=== PATIENT | female | born 1940 | race Caucasian/White ===

== ENCOUNTER 2018-09-04 22:14 | Emergency (ER) | payer MEDICARE, OTHER, BC ==
[2018-09-04 23:08] LABS: BASO % 0.5 % (0.0-1.0); EOS # 0.3 10^3/uL (0.0-0.50); EOS % 3.9 % (0.0-3.0); HEMOGLOBIN 12.6 g/dl (12.0-15.5); IMMATURE GRANULOCYTE % 0.4 % (0-3.0); LYMPH % 13.6 % (24.0-44.0); MEAN CORPUSCULAR HGB CONC 32.3 g/dl (32.0-36.5); MEAN CORPUSCULAR VOLUME 83.7 fl (80.0-96.0); MONO # 0.9 10^3/uL (0.0-0.8); MONO % 11.5 % (0.0-5.0); NEUTROPHILS # 5.4 10^3/uL (1.8-7.7); NEUTROPHILS % 70.1 % (36.0-66.0); PLATELET COUNT, AUTOMATED 280 10^3/uL (150-450); RED BLOOD COUNT 4.66 10^6/uL (4.00-5.40); RED CELL DISTRIBUTION WIDTH 14.7 % (11.5-14.5); WHITE BLOOD COUNT 7.7 10^3/uL (4.0-10.0)
[2018-09-04 23:18] LABS: PARTIAL THROMBOPLASTIN TIME 27.4 SECONDS (25.4-37.6)
[2018-09-04 23:25] LABS: INR 1.03; PROTHROMBIN TIME 13.6 SECONDS (12.1-14.4)
[2018-09-04 23:39] LABS: ANION GAP 7 MEQ/L (8-16); BLOOD UREA NITROGEN 11 MG/DL (7-18); CALCIUM LEVEL 8.7 MG/DL (8.8-10.2); CARBON DIOXIDE LEVEL 26 MEQ/L (21-32); CHLORIDE LEVEL 102 MEQ/L (98-107); CREATININE FOR GFR 0.64 MG/DL (0.55-1.30); GLOMERULAR FILTRATION RATE > 60.0 (>32); GLUCOSE, FASTING 166 MG/DL (70-100); POTASSIUM SERUM 4.4 MEQ/L (3.5-5.1); SODIUM LEVEL 135 MEQ/L (136-145)
== END 2018-09-05 05:01 | disposition home or self-care (01) ==
LOC: M ED 09-05 05:01
DX: R93.5 Abnormal findings on diagnostic imaging of other abdominal regions, including retroperitoneum (principal); N93.9 Abnormal uterine and vaginal bleeding, unspecified; E11.9 Type 2 diabetes mellitus without complications; I10 Essential (primary) hypertension; E07.9 Disorder of thyroid, unspecified; K21.9 Gastro-esophageal reflux disease without esophagitis; F33.9 Major depressive disorder, recurrent, unspecified; F41.9 Anxiety disorder, unspecified; Z79.899 Other long term (current) drug therapy; Z79.890 Hormone replacement therapy; Z79.84 Long term (current) use of oral hypoglycemic drugs
CPT/HCPCS: 76856

== ENCOUNTER 2018-10-07 16:12 | Emergency (ER) | payer MEDICARE, OTHER ==
[~2018-10-07] VITALS: Ht 154.9 cm; Wt 61.4 kg
[~2018-10-07 16:12] MED LIST: CALCTAB7 PO; GLUC1000; LEVO88TA4; LEVOTHYROXINE PO; LISI-542 PO; LISIPOW; METF10004 PO; OMEP20CA3 PO; OMEP20TA7; PAXI20TA; PAXI20TA29 PO; PROT20TA11 PO; SYNT88TA2 PO; TYLE325T5 PO; VITA100067 PO; ZEST1TAB5 PO
[2018-10-07 17:15] LABS: BASO % 0.3 % (0.0-1.0); EOS # 0.3 10^3/uL (0.0-0.50); EOS % 2.9 % (0.0-3.0); HEMATOCRIT 37.3 % (36.0-47.0); LYMPH # 1.2 10^3/uL (1.5-4.5); LYMPH % 10.7 % (24.0-44.0); MEAN CORPUSCULAR HEMOGLOBIN 27.1 pg (27.0-33.0); MEAN CORPUSCULAR HGB CONC 32.2 g/dl (32.0-36.5); MEAN CORPUSCULAR VOLUME 84.4 fl (80.0-96.0); MONO # 1.5 10^3/uL (0.0-0.8); MONO % 14.2 % (0.0-5.0); NEUTROPHILS # 7.7 10^3/uL (1.8-7.7); NEUTROPHILS % 71.3 % (36.0-66.0); PLATELET COUNT, AUTOMATED 318 10^3/uL (150-450); RED BLOOD COUNT 4.42 10^6/uL (4.00-5.40); WHITE BLOOD COUNT 10.8 10^3/uL (4.0-10.0)
[2018-10-07 17:18] LABS: INR 0.98; PROTHROMBIN TIME 13.1 SECONDS (12.1-14.4)
[2018-10-07 17:23] LABS: BLOOD UREA NITROGEN 17 MG/DL (7-18); CALCIUM LEVEL 8.7 MG/DL (8.8-10.2); CARBON DIOXIDE LEVEL 25 MEQ/L (21-32); CHLORIDE LEVEL 101 MEQ/L (98-107); CREATININE FOR GFR 0.72 MG/DL (0.55-1.30); GLOMERULAR FILTRATION RATE > 60.0 (>32); GLUCOSE, FASTING 179 MG/DL (70-100); POTASSIUM SERUM 3.8 MEQ/L (3.5-5.1); SODIUM LEVEL 135 MEQ/L (136-145)
[2018-10-07 18:03] VITALS: BP 150/67
== END 2018-10-07 18:17 | disposition home or self-care (01) ==
LOC: M ED 16:12
DX: N93.9 Abnormal uterine and vaginal bleeding, unspecified (principal); N85.8 Other specified noninflammatory disorders of uterus; I10 Essential (primary) hypertension; E87.1 Hypo-osmolality and hyponatremia; E83.51 Hypocalcemia; R10.30 Lower abdominal pain, unspecified; E11.9 Type 2 diabetes mellitus without complications; E03.9 Hypothyroidism, unspecified; K21.9 Gastro-esophageal reflux disease without esophagitis; F41.9 Anxiety disorder, unspecified; G43.909 Migraine, unspecified, not intractable, without status migrainosus; Z79.899 Other long term (current) drug therapy; Z79.84 Long term (current) use of oral hypoglycemic drugs

== ENCOUNTER 2019-01-29 14:46 | Emergency (ER) | payer MEDICARE, OTHER ==
[~2019-01-29] VITALS: Ht 162.6 cm; Wt 78.9 kg
[2019-01-29 16:01] LABS: BASO % 0.3 % (0.0-1.0); EOS # 0.3 10^3/uL (0.0-0.50); EOS % 3.4 % (0.0-3.0); HEMATOCRIT 34.7 % (36.0-47.0); HEMOGLOBIN 11.1 g/dl (12.0-15.5); LYMPH % 10.1 % (24.0-44.0); MEAN CORPUSCULAR HEMOGLOBIN 24.7 pg (27.0-33.0); MEAN CORPUSCULAR VOLUME 77.3 fl (80.0-96.0); MONO # 1.1 10^3/uL (0.0-0.8); MONO % 11.9 % (0.0-5.0); NEUTROPHILS # 6.9 10^3/uL (1.8-7.7); PLATELET COUNT, AUTOMATED 290 10^3/uL (150-450); RED BLOOD COUNT 4.49 10^6/uL (4.00-5.40); WHITE BLOOD COUNT 9.4 10^3/uL (4.0-10.0)
[2019-01-29 17:08] LABS: BLOOD UREA NITROGEN 14 MG/DL (7-18); CALCIUM LEVEL 8.6 MG/DL (8.8-10.2); CARBON DIOXIDE LEVEL 26 MEQ/L (21-32); CHLORIDE LEVEL 98 MEQ/L (98-107); CREATININE FOR GFR 0.73 MG/DL (0.55-1.30); GLOMERULAR FILTRATION RATE > 60.0 (>32); GLUCOSE, FASTING 160 MG/DL (70-100); POTASSIUM SERUM 4.3 MEQ/L (3.5-5.1); SODIUM LEVEL 132 MEQ/L (136-145)
[2019-01-29 18:31] VITALS: BP 135/62
--- NOTE | 2019-01-29 18:31 | REP ---
PELVIC ULTRASOUND: Real-time sonographic evaluation of the pelvis was performed utilizing transabdominal and endovaginal technique. The bladder measures 4.7 x 4.7 x 8.6 cm. The uterus is enlarged measuring 14.5 x 7.5 x 8.0 cm. Within the region of the endometrium there is possible mass approximately 6.2 x 5.3 x 5.0 cm with increased blood flow. There is also increased blood flow and possible invasion of the cervix. Ovaries could not be visualized. I see no definite adnexal mass or free fluid. IMPRESSION: Suspect ill-defined endometrial mass, somewhat hypervascular, with possible extension into the cervix. Approximate measurements of the mass are 6.2 x 5.3 x 5.0 cm, suspicious for endometrial carcinoma. Electronically Signed by Eliecer Abrams MD 01/31/2019 10:10 A
== END 2019-01-29 19:10 | disposition home or self-care (01) ==
LOC: M ED 14:46
DX: R19.09 Other intra-abdominal and pelvic swelling, mass and lump (principal); N95.0 Postmenopausal bleeding; I10 Essential (primary) hypertension; E03.9 Hypothyroidism, unspecified; K80.20 Calculus of gallbladder without cholecystitis without obstruction; Z78.0 Asymptomatic menopausal state; Z79.899 Other long term (current) drug therapy; Z90.49 Acquired absence of other specified parts of digestive tract

== ENCOUNTER 2019-04-04 23:07 | Emergency (ER) | payer MEDICARE, OTHER ==
[~2019-04-04] VITALS: Ht 154.9 cm; Wt 59.1 kg
[~2019-04-04 23:07] MED LIST changes: -OMEP20CA3 PO; +OMEP20CA4 PO
[2019-04-05 01:18] LABS: BASO % 0.3 % (0.0-1.0); EOS # 0.4 10^3/uL (0.0-0.50); EOS % 2.6 % (0.0-3.0); LYMPH # 1.9 10^3/uL (1.5-4.5); LYMPH % 12.3 % (24.0-44.0); MEAN CORPUSCULAR HEMOGLOBIN 24.6 pg (27.0-33.0); MEAN CORPUSCULAR HGB CONC 31.9 g/dl (32.0-36.5); MEAN CORPUSCULAR VOLUME 77.2 fl (80.0-96.0); MONO # 1.8 10^3/uL (0.0-0.8); MONO % 11.5 % (0.0-5.0); NEUTROPHILS # 11.4 10^3/uL (1.8-7.7); NEUTROPHILS % 72.3 % (36.0-66.0); PLATELET COUNT, AUTOMATED 521 10^3/uL (150-450); RED BLOOD COUNT 2.72 10^6/uL (4.00-5.40); WHITE BLOOD COUNT 15.8 10^3/uL (4.0-10.0)
[2019-04-05 01:21] LABS: HEMOGLOBIN 6.7 g/dl (12.0-15.5)
[2019-04-05 01:27] LABS: INR 1.12; PROTHROMBIN TIME 14.1 SECONDS (11.8-14.0)
[2019-04-05 01:28] LABS: PARTIAL THROMBOPLASTIN TIME 31.2 SECONDS (25.0-38.4)
[2019-04-05 01:49] LABS: BLOOD UREA NITROGEN 11 MG/DL (7-18); CALCIUM LEVEL 7.6 MG/DL (8.8-10.2); CARBON DIOXIDE LEVEL 29 MEQ/L (21-32); CHLORIDE LEVEL 93 MEQ/L (98-107); CREATININE FOR GFR 0.63 MG/DL (0.55-1.30); GLOMERULAR FILTRATION RATE > 60.0 (>32); GLUCOSE, FASTING 153 MG/DL (70-100); POTASSIUM SERUM 2.8 MEQ/L (3.5-5.1); SODIUM LEVEL 134 MEQ/L (136-145)
--- NOTE | 2019-04-05 02:30 | REPVR ---
EXAM: US Pelvis Complete, Transabdominal EXAM DATE/TIME: 04/05/2019 1:46 AM CLINICAL HISTORY: 78 years old, female; Menstruation abnormalities; Postmenopausal bleeding; Additional info: Vaginal bleeding TECHNIQUE: Imaging protocol: Real-time transabdominal pelvic ultrasound with image documentation. Complete exam. COMPARISON: US PELVIC NON-OB COMPLETE 01/29/2019 4:47 PM FINDINGS: Uterus/cervix: Heterogeneous enlarged uterus measuring 12.7 x 7.0 x 8.6 cm. Heterogeneous solid lesion measuring 6.1 x 5.6 x 6.8 cm. Endometrial stripe is not well seen right ovary treated by mass. Heterogeneous thickened cervix with increased vascularity. Right adnexa: Right ovary is not seen. Left adnexa: Left ovary is unremarkable. 1.9 x 1.2 1.0 cm. Free fluid: None. Bladder: Normal. IMPRESSION: Heterogeneous enlarged uterus measuring 12.7 x 7.0 x 8.6 cm. Heterogeneous solid lesion measuring 6.1 x 5.6 x 6.8 cm. Endometrial stripe is not well seen. Findings may represent endometrial mass. Heterogeneous thickened cervix with increased vascularity. EDUCATION SPECIALIST consult is recommended. Further evaluation with MR is recommended. Electronically signed by: Krissy Carrasco On 04/05/2019 02:30:27 AM
[2019-04-05] MEDS ORDERED: POTASSIUM CHLORIDE 10 MEQ SR TABLET PO ONE (03:15)
[2019-04-05] MEDS ORDERED: diphenhydrAMINE INJ 50MG/ML VIAL (J1200) As Ordered ONE (03:46)
[2019-04-05] MEDS ORDERED: diphenhydrAMINE INJ 50MG/ML VIAL (J1200) IV STA (03:47)
[2019-04-05] MEDS ORDERED: NS 500 ML IV ONE (04:00)
[2019-04-05 05:44] VITALS: BP 154/65
--- NOTE | 2019-04-05 10:35 | ECGEPIP ---
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
== END 2019-04-05 05:44 | disposition short-term general hospital (02) ==
LOC: M ED 23:07
DX: N93.8 Other specified abnormal uterine and vaginal bleeding (principal); D64.9 Anemia, unspecified; Z79.899 Other long term (current) drug therapy
CPT/HCPCS: 36430; 76856; 80048; 85025; 85610; 85730; 86850; 86880; 86900; 86901; 86920; 93005; 96361; 96374; 99285; J1200; P9016

== ENCOUNTER 2019-04-12 08:55 | Emergency (ER) | payer MEDICARE, OTHER ==
[~2019-04-12] VITALS: Ht 162.6 cm; Wt 54.9 kg
[2019-04-12] MEDS ORDERED: HEPARIN SOD (PORCINE) 5000 UNITS/ML VIAL ONE (08:56)
[2019-04-12] MEDS ORDERED: HEPARIN 25,000 UNITS/250 ML D5W BAG (100 UNITS/ML) ONE (08:56)
[2019-04-12] MEDS ORDERED: CLOPIDOGREL 300 MG TAB (PLAVIX) ONE (08:56)
[2019-04-12] MEDS ORDERED: ONDANSETRON 4MG/2ML VIAL (J2405) IV ONE (09:15)
[2019-04-12] MEDS ORDERED: MORPHINE 4 MG/ML 1ML VIAL/SYRINGE (J2270) IV ONE ×2 (09:15→09:45)
[2019-04-12] MEDS ORDERED: CLOPIDOGREL 300 MG TAB (PLAVIX) PO STA (09:19)
[2019-04-12 09:26] LABS: BASO # 0.1 10^3/uL (0.0-0.2); BASO % 0.3 % (0.0-1.0); EOS # 0.2 10^3/uL (0.0-0.50); EOS % 1.1 % (0.0-3.0); HEMATOCRIT 28.9 % (36.0-47.0); LYMPH # 2.6 10^3/uL (1.5-4.5); MEAN CORPUSCULAR HEMOGLOBIN 26.5 pg (27.0-33.0); MEAN CORPUSCULAR HGB CONC 31.1 g/dl (32.0-36.5); MONO # 1.5 10^3/uL (0.0-0.8); MONO % 8.7 % (0.0-5.0); NEUTROPHILS # 12.9 10^3/uL (1.8-7.7); NEUTROPHILS % 73.7 % (36.0-66.0); PLATELET COUNT, AUTOMATED 670 10^3/uL (150-450); WHITE BLOOD COUNT 17.5 10^3/uL (4.0-10.0)
[2019-04-12] MEDS ORDERED: HEPARIN DRIP 25,000 UNITS in APPROPRIATE DILUENT 1 EA IV SCH (09:33)
[2019-04-12 09:37] LABS: INR 1.23; PARTIAL THROMBOPLASTIN TIME 25.5 SECONDS (25.0-38.4); PROTHROMBIN TIME 15.2 SECONDS (11.8-14.0)
--- NOTE | 2019-04-12 09:37 | REP ---
Portable chest x-ray: Single view. History: Chest pain. Comparison study: June 26, 2008. Findings: EKG monitoring electrodes and oxygen delivery tubing are seen. Heart size is borderline. Interstitial markings are diffusely prominent suggestive of interstitial fibrosis. Pulmonary vasculature is not increased. The aorta is calcific and a little tortuous. There is evidence of a hiatal hernia. No focal infiltrate is seen. Impression: Diffuse interstitial fibrosis pattern. Hiatal hernia. Borderline heart size. No focal infiltrate. Electronically Signed by Roscoe Corrales MD 04/12/2019 02:02 P
[2019-04-12 09:42] VITALS: BP 170/85
[2019-04-12] MEDS ORDERED: HEPARIN SOD (PORCINE) 5000 UNITS/ML VIAL IV ONE (09:45)
[2019-04-12 10:56] LABS: BLOOD UREA NITROGEN 5 MG/DL (7-18); CALCIUM LEVEL 8.2 MG/DL (8.8-10.2); CARBON DIOXIDE LEVEL 23 MEQ/L (21-32); CHLORIDE LEVEL 103 MEQ/L (98-107); CK-MB VALUE MASS 1.5 NG/ML (<3.6); CPK CREATINE PHOSPHOKINASE 51 U/L (26-192); CREATININE FOR GFR 0.65 MG/DL (0.55-1.30); FREE T4 1.67 NG/DL (0.76-1.46); GLOMERULAR FILTRATION RATE > 60.0 (>32); GLUCOSE, FASTING 197 MG/DL (70-100); MB/CK RELATIVE INDEX 2.94 (< OR =4); POTASSIUM SERUM 3.2 MEQ/L (3.5-5.1); SODIUM LEVEL 137 MEQ/L (136-145); TROPONIN I 0.23 NG/ML (< 0.10)
--- NOTE | 2019-04-12 19:22 | ECGEPIP ---
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
== END 2019-04-12 09:48 | disposition short-term general hospital (02) ==
LOC: M ED 08:55 → EDBD 08:55 → M ED 09:48
DX: I21.19 ST elevation (STEMI) myocardial infarction involving other coronary artery of inferior wall (principal); R06.02 Shortness of breath; Z85.42 Personal history of malignant neoplasm of other parts of uterus; K44.9 Diaphragmatic hernia without obstruction or gangrene; J84.112 Idiopathic pulmonary fibrosis; Z79.899 Other long term (current) drug therapy
CPT/HCPCS: 71045; 80048; 82550; 82553; 84439; 84443; 84484; 85025; 85610; 85730; 93005; 93041; 94760; 96374; 96375; 99285; J2270; J2405

== ENCOUNTER → 2019-04-19 | Outpatient (CLI) | payer MEDICARE, OTHER ==
[2019-04-19 11:52] LABS: HEMATOCRIT 28.7 % (36.0-47.0); HEMOGLOBIN 8.8 g/dl (12.0-15.5); MEAN CORPUSCULAR HEMOGLOBIN 27.1 pg (27.0-33.0); MEAN CORPUSCULAR HGB CONC 30.7 g/dl (32.0-36.5); MEAN CORPUSCULAR VOLUME 88.3 fl (80.0-96.0); PLATELET COUNT, AUTOMATED 416 10^3/uL (150-450); RED BLOOD COUNT 3.25 10^6/uL (4.00-5.40); WHITE BLOOD COUNT 12.5 10^3/uL (4.0-10.0)
== END ==
LOC: M LAB 11:22
PROVIDERS: ATTEND Internal Medicine
DX: D64.9 Anemia, unspecified (principal)

== ENCOUNTER 2019-07-03 20:13 | Emergency (ER) | payer MEDICARE, OTHER ==
[~2019-07-03] VITALS: Ht 154.9 cm; Wt 54.5 kg
[2019-07-03] MEDS ORDERED: ATOR1TAB21 PO (20:27)
[2019-07-03] MEDS ORDERED: NS 1,000 ML IV SCH (21:30)
[2019-07-03 22:04] LABS: HEMATOCRIT 34.5 % (36.0-47.0); HEMOGLOBIN 10.9 g/dl (12.0-15.5); MEAN CORPUSCULAR HGB CONC 31.6 g/dl (32.0-36.5); MEAN CORPUSCULAR VOLUME 85.6 fl (80.0-96.0); PLATELET COUNT, AUTOMATED 371 10^3/uL (150-450); RED BLOOD COUNT 4.03 10^6/uL (4.00-5.40); WHITE BLOOD COUNT 11.6 10^3/uL (4.0-10.0)
[2019-07-03 22:17] LABS: BLOOD UREA NITROGEN 11 MG/DL (7-18); CALCIUM LEVEL 8.7 MG/DL (8.8-10.2); CARBON DIOXIDE LEVEL 29 MEQ/L (21-32); CHLORIDE LEVEL 100 MEQ/L (98-107); CREATININE FOR GFR 0.73 MG/DL (0.55-1.30); GLOMERULAR FILTRATION RATE > 60.0 (>32); GLUCOSE, FASTING 143 MG/DL (70-100); MAGNESIUM LEVEL 1.8 MG/DL (1.8-2.4); POTASSIUM SERUM 3.3 MEQ/L (3.5-5.1); SODIUM LEVEL 137 MEQ/L (136-145)
[2019-07-03 22:19] LABS: INR 1.11
--- NOTE | 2019-07-03 23:10 | REPVR ---
PROCEDURE INFORMATION: Exam: US Pelvis Complete, Transabdominal Exam date and time: 07/03/2019 10:32 PM Clinical history: 79 years old, female; Other: Bleeding; Prior surgery; Surgery date: 1-6 months; Surgery type: Hysterectomy, oophorectomy TECHNIQUE: Imaging protocol: Real-time transabdominal pelvic ultrasound with image documentation. Complete exam. COMPARISON: US PELVIC NON-OB COMPLETE 04/05/2019 1:33 AM FINDINGS: Uterus/cervix: Status post total abdominal hysterectomy Right adnexa: Status post right oophorectomy. Left adnexa: Status post left oophorectomy. Free fluid: None. Bladder: Bladder measures 4.8 x 3.1 x 8.2 cm. No abnormalities demonstrated. Vasculature: Solid mass demonstrated in the vicinity of the vaginal cuff measures 6.1 x 4.1 x 5 cm demonstrating internal vascularity on color flow Doppler. Findings worrisome for metastatic disease. IMPRESSION: Solid mass demonstrated in the vicinity of the vaginal cuff measures 6.1 x 4.1 x 5 cm demonstrating internal vascularity on color flow Doppler. Findings worrisome for metastatic disease. Electronically signed by: Truong Kruger On 07/03/2019 23:10:33 PM
[2019-07-03 23:55] VITALS: BP 167/71
--- NOTE | 2019-07-09 10:06 | ED PDOC ---
Post-Departure Follow-Up dr thurman and dr kruse faxed formal report of pelvic us for fu porfiriog Baylee Ackerman MD Jul 09, 2019 10:06
== END 2019-07-03 23:56 | disposition home or self-care (01) ==
LOC: M ED 20:13
DX: N93.9 Abnormal uterine and vaginal bleeding, unspecified (principal); N89.8 Other specified noninflammatory disorders of vagina; C54.1 Malignant neoplasm of endometrium; I25.2 Old myocardial infarction; I10 Essential (primary) hypertension; Z79.899 Other long term (current) drug therapy

== ENCOUNTER 2019-07-05 19:47 | Emergency (ER) | payer MEDICARE, OTHER ==
[~2019-07-05] VITALS: Ht 154.9 cm; Wt 58.2 kg
[~2019-07-05 19:47] MED LIST changes: +ATOR1TAB21 PO
[2019-07-05 20:22] LABS: HEMATOCRIT 34.6 % (36.0-47.0); MEAN CORPUSCULAR HEMOGLOBIN 27.4 pg (27.0-33.0); MEAN CORPUSCULAR HGB CONC 31.8 g/dl (32.0-36.5); MEAN CORPUSCULAR VOLUME 86.1 fl (80.0-96.0); PLATELET COUNT, AUTOMATED 339 10^3/uL (150-450); RED BLOOD COUNT 4.02 10^6/uL (4.00-5.40); WHITE BLOOD COUNT 10.7 10^3/uL (4.0-10.0)
[2019-07-05 20:49] LABS: BLOOD UREA NITROGEN 8 MG/DL (7-18); CALCIUM LEVEL 8.3 MG/DL (8.8-10.2); CARBON DIOXIDE LEVEL 31 MEQ/L (21-32); CHLORIDE LEVEL 102 MEQ/L (98-107); CREATININE FOR GFR 0.73 MG/DL (0.55-1.30); GLOMERULAR FILTRATION RATE > 60.0 (>32); GLUCOSE, FASTING 148 MG/DL (70-100); POTASSIUM SERUM 3.6 MEQ/L (3.5-5.1); SODIUM LEVEL 138 MEQ/L (136-145)
[2019-07-05 20:52] LABS: INR 1.07; PARTIAL THROMBOPLASTIN TIME 27.8 SECONDS (25.0-38.4); PROTHROMBIN TIME 13.6 SECONDS (11.8-14.0)
[2019-07-05] MEDS ORDERED: ISOVUE-370 76% 100ML VIAL (Q9967) As Ordered ONE (21:01)
--- NOTE | 2019-07-05 22:23 | REPVR ---
PROCEDURE INFORMATION: Exam: CT Abdomen and pelvis with contrast Exam date and time: 07/05/2019 9:17 PM Clinical history: 79 years old, female; Other: Vaginal bleeding; Additional info: Vaginal bleeding, known metastatic cancer TECHNIQUE: Imaging protocol: Computed tomography of the abdomen and pelvis with intravenous contrast. Radiation optimization: All CT scans at this facility use at least one of these dose optimization techniques: automated exposure control; mA and/or kV adjustment per patient size (includes targeted exams where dose is matched to clinical indication); or iterative reconstruction. Contrast material: ISOVUE 370; Contrast volume: 100 ml; Contrast route: IV; COMPARISON: CT ABD PELVIS W/O CONTRAST 01/21/2015 3:09 AM FINDINGS: Lungs: 12 mm noncalcified nodule anterior aspect of the right lower lobe not demonstrated previously. Finding likely malignant considering pelvic findings (see below). Increased interstitial markings demonstrated at both lung bases. Bibasilar bronchiectasis, left greater than right. Mediastinum: A moderate hiatal hernia is present. Liver: Normal. No mass. Gallbladder and bile ducts: There has been a cholecystectomy. Pancreas: There is diffuse pancreatic atrophy. Spleen: Normal. No splenomegaly. Adrenals: Normal. No mass. Kidneys and ureters: Small cyst anterior aspect right kidney measures 10 mm. Stomach and bowel: Moderate diverticulosis is present in the distal colon. No diverticulitis. Appendix: No evidence of appendicitis. Intraperitoneal space: Unremarkable. No free air. No significant fluid collection. Vasculature: The aorta demonstrates moderate atherosclerotic calcification. Lymph nodes: Pelvic lymphadenopathy on the right measures up to 2.1 cm in the internal iliac node chain and 12 mm in the left internal iliac node chain. Lymph node in the left lower quadrant measures 17 mm. Bladder: Unremarkable as visualized. Reproductive: Status post hysterectomy. Heterogeneous mass in the uterine bed measures 7.1 x 4.2 x 6.2 cm worrisome for malignancy. Bones/joints: Moderate central spinal stenosis L3-4 and severe central spinal stenosis L4-5. The spine demonstrates moderate degenerative changes. Soft tissues: Unremarkable. IMPRESSION: 1. 12 mm noncalcified nodule anterior aspect of the right lower lobe not demonstrated previously. Finding likely metastatic. 2. Moderate hiatal hernia. 3. There is diffuse pancreatic atrophy. 4. There has been a cholecystectomy. 5. Moderate diverticulosis is present in the distal colon. No diverticulitis. 6. Pelvic lymphadenopathy consistent with malignancy. 7. Pelvic mass status post hysterectomy likely malignant. COMMENT: Consistent with the [employer]'s Incidental Findings Committee Report (J Am Alley Radiol 2010): Unless the patient's specific circumstances suggest otherwise, any liver lesion 0.5 cm or less, any cystic kidney lesion less than 1.0 cm, and/or any adrenal lesion 1.0 cm or less not otherwise characterized in this report as possessing suspicious or indeterminate imaging features is/are highly likely to be benign and do not require follow-up imaging or biopsy. Electronically signed by: Truong Kruger On 07/05/2019 22:22:36 PM
[2019-07-05 23:00] VITALS: BP 139/63
== END 2019-07-05 23:19 | disposition home or self-care (01) ==
LOC: M ED 19:47
DX: N93.9 Abnormal uterine and vaginal bleeding, unspecified (principal); R19.07 Generalized intra-abdominal and pelvic swelling, mass and lump; C54.1 Malignant neoplasm of endometrium; R91.1 Solitary pulmonary nodule; K44.9 Diaphragmatic hernia without obstruction or gangrene; K57.32 Diverticulitis of large intestine without perforation or abscess without bleeding; R59.0 Localized enlarged lymph nodes; Z90.710 Acquired absence of both cervix and uterus; Z79.899 Other long term (current) drug therapy
CPT/HCPCS: 74177; 80048; 85027; 85610; 85730; 86850; 86900; 86901; 99284; Q9967

== ENCOUNTER → 2019-08-06 | Outpatient (CLI) | payer MEDICARE, OTHER ==
[~2019-08-06] MED LIST changes: +AMIO200T PO; +ASPI81CH33 PO; +ASPI81TA26 PO; +FERR240T PO; +FERR325T16 PO; +LEVO125T41 PO; +METO1TAB7 PO; +METO25TA4 PO; +NITR0.4S14 SL; +NITROLINGUAL PO; +SERT-141 PO
[2019-08-06 14:09] LABS: BASO # 0.1 10^3/uL (0.0-0.2); BASO % 0.3 % (0.0-1.0); EOS # 0.5 10^3/uL (0.0-0.5); EOS % 2.5 % (0.0-3.0); HEMATOCRIT 33.6 % (36.0-47.0); HEMOGLOBIN 10.6 g/dl (12.0-15.5); LYMPH # 1.1 10^3/uL (1.5-5.0); LYMPH % 5.1 % (24.0-44.0); MEAN CORPUSCULAR HEMOGLOBIN 25.6 pg (27.0-33.0); MEAN CORPUSCULAR HGB CONC 31.5 g/dl (32.0-36.5); MEAN CORPUSCULAR VOLUME 81.2 fl (80.0-96.0); MONO % 9.9 % (0.0-5.0); NEUTROPHILS # 16.8 10^3/uL (1.5-8.5); NEUTROPHILS % 81.2 % (36.0-66.0); PLATELET COUNT, AUTOMATED 573 10^3/uL (150-450); RED BLOOD COUNT 4.14 10^6/uL (4.00-5.40); WHITE BLOOD COUNT 20.7 10^3/uL (4.0-10.0)
[2019-08-06 14:48] LABS: BLOOD UREA NITROGEN 19 MG/DL (7-18); CALCIUM LEVEL 9.1 MG/DL (8.8-10.2); CARBON DIOXIDE LEVEL 28 MEQ/L (21-32); CHLORIDE LEVEL 98 MEQ/L (98-107); CREATININE FOR GFR 0.59 MG/DL (0.55-1.30); GLOMERULAR FILTRATION RATE > 60.0 (>32); GLUCOSE, FASTING 141 MG/DL (70-100); POTASSIUM SERUM 2.9 MEQ/L (3.5-5.1); SODIUM LEVEL 138 MEQ/L (136-145); TROPONIN I < 0.02 NG/ML (< 0.10)
[2019-08-06 15:18] LABS: HEMOGLOBIN A1c 7.9 %
== END ==
LOC: M LAB 13:18
PROVIDERS: ATTEND Internal Medicine
DX: R07.9 Chest pain, unspecified (principal); E07.9 Disorder of thyroid, unspecified

== ENCOUNTER 2019-08-09 06:28 | Inpatient (IN) | payer MEDICARE, OTHER ==
[~2019-08-09] VITALS: Ht 154.9 cm; Wt 55.2 kg
[~2019-08-09 06:28] MED LIST changes: -AMIO200T PO; -ASPI81CH33 PO; -ASPI81TA26 PO; -FERR240T PO; -FERR325T16 PO; -LEVO125T41 PO; +LEVOTHYROXINE 125MCG TABLET (0.125MG) PO SCH; -METO1TAB7 PO; -METO25TA4 PO; -NITR0.4S14 SL; -NITROLINGUAL PO; -SERT-141 PO
[2019-08-09 06:57] LABS: BASO # 0.1 10^3/uL (0.0-0.2); BASO % 0.3 % (0.0-1.0); EOS # 0.4 10^3/uL (0.0-0.5); EOS % 2.3 % (0.0-3.0); HEMATOCRIT 32.1 % (36.0-47.0); HEMOGLOBIN 10.3 g/dl (12.0-15.5); LYMPH % 5.4 % (24.0-44.0); MEAN CORPUSCULAR HGB CONC 32.1 g/dl (32.0-36.5); MEAN CORPUSCULAR VOLUME 81.1 fl (80.0-96.0); MONO # 1.9 10^3/uL (0.0-0.8); NEUTROPHILS # 15.4 10^3/uL (1.5-8.5); PLATELET COUNT, AUTOMATED 578 10^3/uL (150-450); RED BLOOD COUNT 3.96 10^6/uL (4.00-5.40); WHITE BLOOD COUNT 19.1 10^3/uL (4.0-10.0)
[2019-08-09] MEDS ORDERED: FERR240T PO (07:04)
[2019-08-09] MEDS ORDERED: NITROLINGUAL PO (07:04)
[2019-08-09] MEDS ORDERED: AMIO200T PO (07:04)
[2019-08-09] MEDS ORDERED: METF10004 PO (07:04)
[2019-08-09] MEDS ORDERED: ASPI81CH33 PO (07:04)
[2019-08-09] MEDS ORDERED: METO1TAB7 PO (07:04)
[2019-08-09] MEDS ORDERED: SERT-141 PO (07:04)
[2019-08-09] MEDS ORDERED: FERR325T16 PO ×2 (07:04→09:31)
[2019-08-09 07:10] LABS: INR 1.22; PROTHROMBIN TIME 15.1 SECONDS (11.8-14.0)
[2019-08-09 07:11] LABS: PARTIAL THROMBOPLASTIN TIME 31.2 SECONDS (25.0-38.4)
--- NOTE | 2019-08-09 07:12 | REP ---
PA and lateral chest, the patient sitting, 06:48 a.m.: Comparison is the portable chest of 04/12/2019. There is a small right apical pneumothorax as an interval change. There are diffuse bilateral interstitial infiltrates as an interval change. There are no pleural effusions. Cardiac size is enlarged, unchanged. The The bar[place], mediastinum, skeletal structures are unremarkable. Impression: 1. Small right apical pneumothorax. 2. Diffuse bilateral interstitial infiltrates. Electronically Signed by Eliecer Giles MD 08/09/2019 07:03 A
[2019-08-09 07:26] LABS: ALBUMIN 2.1 GM/DL (3.2-5.2); ALT/SGPT 10 U/L (12-78); BILIRUBIN,DIRECT < 0.1 MG/DL (0.0-0.2); BILIRUBIN,TOTAL 0.5 MG/DL (0.2-1.0); BLOOD UREA NITROGEN 24 MG/DL (7-18); CARBON DIOXIDE LEVEL 29 MEQ/L (21-32); CHLORIDE LEVEL 101 MEQ/L (98-107); CK-MB VALUE MASS < 1.0 NG/ML (<3.6); CPK CREATINE PHOSPHOKINASE 38 U/L (26-192); CREATININE FOR GFR 0.75 MG/DL (0.55-1.30); GLOMERULAR FILTRATION RATE > 60.0 (>32); GLUCOSE, FASTING 162 MG/DL (70-100); MB/CK RELATIVE INDEX 2.63 (< OR =4); POTASSIUM SERUM 3.1 MEQ/L (3.5-5.1); SODIUM LEVEL 140 MEQ/L (136-145); TOTAL PROTEIN 6.2 GM/DL (6.4-8.2); TROPONIN I < 0.02 NG/ML (< 0.10)
[2019-08-09 07:27] LABS: LIPASE 69 U/L (73-393); NT-PRO BNP 1264 PG/ML (<450)
[2019-08-09] MEDS ORDERED: ISOVUE-370 76% 100ML VIAL (Q9967) As Ordered ONE (08:03)
[2019-08-09] MEDS ORDERED: ALPRAZolam 0.25 MG TAB PO ONE (08:45)
[2019-08-09] MEDS ORDERED: PIPERACILLIN/TAZOBACTAM SOD 3.375 GM in D5W MINI-BAG PLUS 50 ML IV ONE (08:45)
--- NOTE | 2019-08-09 09:00 | REP ---
CT of the chest with IV contrast, CT pulmonary angiography protocol: Comparison is the portable chest performed earlier this same date. There is a small right pneumothorax. There are no emboli in the pulmonary trunk or central pulmonary arteries. There are no emboli in the pulmonary lobe or segment branches. There are innumerable ground-glass confluent densities throughout the lung queen bilaterally, compatible with confluent infiltrates. There are no pleural effusions. There is a 5.6 x 4.2 cm mass medially in the anterior segment right lower lobe. There is no adenopathy. There is a retrocardiac hiatal hernia measuring six point 4 cm transverse diameter. The thoracic aorta is unremarkable. The cardiac size is mildly enlarged. There is no pericardial effusion. The visualized upper abdominal contents are unremarkable except for heavy calcified vascular atheroma in the splenic artery. Impression: Small right pneumothorax. Multiple confluent ground-glass densities throughout the lung queen bilaterally compatible with infiltrates. No pleural effusions. No pulmonary emboli. Cardiomegaly. No pericardial effusion. Right lung mass as described. No adenopathy. Electronically Signed by Eliecer Giles MD 08/09/2019 08:52 A
[2019-08-09] MEDS ORDERED: KETOROLAC 30 MG/ML VIAL (J1885) IV ONE (09:15)
[2019-08-09] MEDS ORDERED: METO25TA4 PO (09:31)
[2019-08-09] MEDS ORDERED: NITR0.4S14 SL (09:31)
[2019-08-09] MEDS ORDERED: LEVO125T41 PO (09:31)
[2019-08-09] MEDS ORDERED: ASPI81TA26 PO (09:31)
--- NOTE | 2019-08-09 10:45 | REP ---
PORTABLE CHEST X-RAY: Sitting AP view. 10:09 a.m. film. HISTORY: Pneumothorax. COMPARISON STUDY: August 09, 2019 , 6:48 a.m. film. FINDINGS: A small right apical pneumothorax is again seen unchanged from the 6:48 a.m. radiograph. Diffuse interstitial fibrosis pattern persists throughout the lung queen unchanged. There is an air-fluid level in a hiatal hernia behind the heart. IMPRESSION: Small right apical pneumothorax persists unchanged. Diffuse interstitial lung disease again noted. Electronically Signed by Roscoe Corrales MD 08/09/2019 12:56 P
[2019-08-09] MEDS ORDERED: MOM 30ML SUSPENSION UDC PO PRN (11:00)
[2019-08-09] MEDS ORDERED: MAALOX 30 ML SUSP *UDC PO PRN (11:00)
[2019-08-09 11:14] VITALS: BP 132/61
[2019-08-09 12:00] VITALS: BP 131/61
[2019-08-09] MEDS: FERROUS GLUCONATE 324 MG TAB PO SCH ×2 (13:04→20:53)
[2019-08-09] MEDS: ENOXAPARIN 40 MG/0.4 ML SYRINGE (J1650) SC SCH (13:04)
[2019-08-09] MEDS: ATORVASTATIN 20 MG TAB PO SCH (13:04)
[2019-08-09] MEDS: ASPIRIN 81 MG ENTERIC TAB PO SCH (13:05)
[2019-08-09] MEDS: AMIODARONE 200 MG TAB (PACERONE) PO SCH (13:05)
[2019-08-09] MEDS: LISINOPRIL 5 MG TAB PO SCH (13:05)
[2019-08-09] MEDS: SERTRALINE HCL 50 MG TAB PO SCH (13:05)
[2019-08-09] MEDS: DOCUSATE SODIUM 100 MG CAP PO SCH ×2 (13:05→20:53)
[2019-08-09] MEDS: OMEPRAZOLE 20 MG CAP PO SCH (13:05)
[2019-08-09] MEDS: METOPROLOL TART 12.5 MG PER 1/2 TAB PO SCH ×2 (13:06→20:53)
--- NOTE | 2019-08-09 14:29 | CR ---
DATE OF CONSULTATION: 08/09/2019 The patient is seen at the request of Dr. Briones of the emergency room and the hospitalist service for a sliver of a pneumothorax. HISTORY OF PRESENT ILLNESS: The patient's story starts about three weeks ago, although she is a fairly vague and poor historian, but she noticed a few weeks ago that she started to experience a gradual onset of increasing shortness of breath. This shortness of breath has progressed to shortness of breath at rest. She denies chest pain or chest discomfort, except until yesterday when she felt some sharp pain with taking deep breaths. She does not report fever, chills or sweats and neither does she report dysphagia. She has had a slight cough, but no sputum production. There has been no hemoptysis. No dysphagia. She was diagnosed with uterine cancer approximately three or four months ago. It is unclear in her mind as to what led to the workup to discover the uterine cancer. She states that over the last six months she has lost about 60 pounds of weight. That may have been the onset of looking for malignancy. PAST MEDICAL HISTORY: Includes myocardial infarction in April of this year, the above mentioned uterine cancer, hypothyroidism, hypertension, diabetes, gastroesophageal reflux. She is on amiodarone for unknown reasons to this observer. PAST SURGERIES: Cholecystectomy in the remote past and hysterectomy recently for her uterine cancer. MEDICATIONS AT HOME: Amiodarone 200 mg daily, aspirin 81 mg daily, atorvastatin 20 mg daily, ferrous gluconate 324 mg twice a day, Synthroid 125 mcg daily, lisinopril 5 mg daily, metformin 1000 mg twice a day, metoprolol 2.5 mg twice a day, nitroglycerin sublingually 0.4 mg as needed chest pain, omeprazole 20 mg daily, Sertraline 50 mg daily. TRAVEL HISTORY: Denies travel to the [facility] or [facility] or foreign travel. Her memory however is a bit vague. EXPOSURES: No dogs, birds or cats at home. 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 HABITS: Never smoked. Drinks only very occasionally. No illicit drugs. FAMILY HISTORY: Not pertinent to the acute situation. REVIEW OF SYSTEMS: Constitutional: See history of present illness (HPI). She has the significant weight loss of 60 pounds in the last six months. Eyes: Without diplopia. Without amaurosis fugax. Without prior jaundice. Nose: Without epistaxis. Mouth: Wears dentures. Pulmonary: See HPI. Cardiac: Does not complain of orthopnea or paroxysmal nocturnal dyspnea. Without peripheral edema or intermittent claudication. She denied having had a heart attack, although it is clearly documented in the medical record. GI: Denies nausea, vomiting, diarrhea, constipation, melena, hematochezia, hematemesis, or abdominal pain. : Without dysuria or hematuria. Prior history of renal stones. Endocrine: With hypothyroidism and diabetes. Neurologic: Without paresthesias, paralyses or prior seizures. Psychiatric: Without pathological depression, anxiety, stressors, psychoses. PHYSICAL EXAMINATION: Temperature is 97.1, heart rate 63, respiratory rate 20 without the use of accessory muscles, who is 96% saturated on 2 liters nasal cannula and whose blood pressure is 122/59. Her rhythm is predominantly sinus. Eyes: Pupils equal round and reactive to light. Extraocular movements intact. Sclerae nonicteric. Nose without deformity. Mouth shows her mucous membranes to be pink and moist. Lips and commissures are without lesions. There is no thrush. She is edentulous. Head; Normocephalic. Neck: Supple. There is no jugular venous distention. No subcutaneous emphysema. Trachea is midline. There is no thyromegaly or lymphadenopathy. Lungs: Show inspiratory rales bilaterally throughout all the lung queen. These are fairly fine crackles. Percussion note is full to the diaphragm. Cardiac Exam: Shows a systolic ejection murmur approximately 2/6. It does not radiate. I cannot feel her PMI. Abdomen: Soft. Nontender. Bowel sounds are positive. There is no hepatomegaly. No costovertebral angle (CVA) tenderness. Extremities: Show no pretibial edema. No calf tenderness. No differential swelling of the upper extremities. Skin: Warm, dry and perfused. Without cyanosis or mottling, including that of the nail beds and knees. Neurologic: Shows II-XII intact along with gross motor and gross sensation intact. Gait is not tested. Psychiatric shows her to be awake, alert, but somewhat confused. Her white count today is 19.1. It was 20.7 on 08/06/2019. Hemoglobin and hematocrit are 10.3 and 32.1 with a platelet count of 578. Differential shows 81% neutrophils, 5% lymphocytes, 10% monocytes. There are no immature forms and no toxic granulations. Her electrolytes show a potassium of 3.1. BUN and creatinine are 24 and 0.75. Calcium is 9.0 with normal LFTs. Her troponin is less than 0.02, but her BNP is 1264 - markedly elevated. Albumin is 2.1. Her TSH is 30.6 - again markedly elevated. PT/INR 15.1/1.22 respectively with a PTT of 31 seconds. There are no blood gases on her. There is no urinalysis. Her chest x-ray shows a small right sided pneumothorax. It is done portably. She has bilateral infiltrates throughout which look alveolar in nature. There is no subcutaneous emphysema. Costophrenic angles are sharp. There is no lateral film. Chest CT done also today confirms a small pneumothorax. It is done with angiographic protocol. I do not see a pulmonary embolism. She has an alveolar pattern of increased alveolar fluid, much of which is dependent. There is no pericardial effusion. She does have a mass in the right lower hilum. It does have cavitation within it. It is not a bronchus. The liver is not showing any metastatic lesions. Her right adrenal looks a little plump, but has the normal tail configuration. The pneumothorax on the chest CT is very, very small, literally a sliver. I do not see where an EKG has been done today. IMPRESSION: 1. Small spontaneous right pneumothorax. 2. Alveolar infiltrative pattern, somewhat dependent, consistent with possible heart failure. 3. Heart failure with increased BNP, status post myocardial infarction this past April. 4. Hypothyroidism. 5. Hypertension. 6. Amiodarone exposure. 7. Uterine cancer, probably metastatic to her lung, manifested by a large hilar mass with cavitation. PLAN AND DISCUSSION: The patient's chief complaint and major acute problem is her shortness of breath. I will obtain an echo and I would recommend that we start to diurese her. She does not have a pericardial effusion. My working diagnosis for her shortness of breath and imaging findings would be heart failure. The pneumothorax is trivial and only requires observation with daily chest x-rays. She is very hypothyroid and with markedly increased TSH. She is also hypokalemic, which should be replaced.
--- NOTE | 2019-08-09 14:47 | HPEPDOC ---
[facility] Medical History & Physical Date of Admission Aug 09, 2019 Date of Service: Aug 09, 2019 Other Provider Fabian Gross MD Attending Physician: PAVAN URBANO MD History and Physical CHIEF COMPLAINT: Chest pain and shortness of breath HISTORY OF PRESENT ILLNESS: Cat Grace is a 79-year-old white female with past medical history of uterine cancer (s/p total hysterectomy), HTN, CAD, hypothyroidism and A. fib (rhythm and rate controlled with amiodarone and metoprolol, not on anticoagulation) presenting with one-day duration of chest pain and shortness of breath. She says the shortness of breath started yesterday morning while she was walking around the house and has progressed to the point where she is short of breath at rest. She explains the chest pain is only when she tries to take a breath. The pain is localized to the middle of her chest. She rates it as an 8 out of 10. It doesn't radiate. She took Tylenol and ibuprofen yesterday for the pain with only slight improvement. She had a previous episode of similar shortness of breath and chest pain 2 years ago. She was found to have 3 occluded coronary arteries, 2 of which were treated with angioplasty.. She follows with Dr. Hinds. 3 days ago her PCP discontinued her furosemide and prescribed her 2 medications which she couldn't remember the names of. They have yet to seed cone picker those medications from the pharmacy. 4-5 months ago she was diagnosed with uterine cancer treated with total hysterectomy. When asked if she was followed with chemotherapy or radiation, she denied any interest. She denies any issues with her heart, apart from a known murmur. PAST MEDICAL HISTORY: 1. Hx of Uterine cancer (s/p total hysterectomy) 2. HTN 3. CAD 4. A. Fib 5. Hypothyroidism PAST SURGICAL HISTORY: 1. Total hysterectomy in May 2019. 2. Cholecystectomy. SOCIAL HISTORY: Marital status: . 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 Denies FAMILY HISTORY: Family history of hypertension and cancer ALLERGIES: Please see below. REVIEW OF SYSTEMS: CONSTITUTIONAL: Describes a 60-80 pound weight loss over the past year .No fevers/chills, N/V, vomiting, weakness, night sweats HEENT: She uses reading glasses. Denies headache, lightheadedness, changes in vision. Denies any sore throat, cough CARDIOVASCULAR:. Denies chest pain, palpitations, claudication, leg edema. RESPIRATORY: Denies cough, hemoptysis. GASTROINTESTINAL:. Denies any abdominal pain or constipation. GENITOURINARY:. Denies any difficulty urinating, dysuria, hematuria or incontinence. SKIN:. Denies any skin changes. MUSCULOSKELETAL: Denies any weakness, numbness, tingling. NEUROLOGICAL:. Denies any syncope. PSYCHIATRIC:. No mood changes. ENDOCRINE:, Denies any lethargy. HEMATOLOGIC/LYMPHATIC: Denies any episodes of bleeding. HOME MEDICATIONS: Please see below. PHYSICAL EXAMINATION: VITAL SIGNS: (see below) GENERAL: Patient is pleasant and cooperative, sitting up comfortably in bed on 2L O2 via nasal cannula, alert and oriented in no acute distress HEENT: Normocephalic, atraumatic. Thinning of hair. Small mole on pt's left eyebrow. No scleral icterus. PERRLA. EOMI. No conjunctival pallor. No nasal discharge. No tracheal deviation. No obvious swollen lymph nodes CARDIOVASCULAR: Regular rate and rhythm. Normal S1 and S2. 2/6 Aortic Stenosis murmur,no gallops or rubs noted RESPIRATORY: Symmetric chest wall motion. Crackles heard b/l. No rales or wheezes noted. ABDOMINAL:. No obvious lesions noted. Normal bowel sounds in all 4 quadrants. No pain, tenderness, guarding or rigidity EXTREMITIES:. 2/4 pulses noted throughout. normal capillary refill. No leg swelling or tenderness NEUROLOGICAL: A&O x3. CN II- XII intact. 5/5 strength in all 4 extremities. Spontaneous movements of all extremities. No focal deficits noted PSYCHOLOGICAL: Mood and affect were appropriate LABORATORY DATA: See below. IMAGIN08/09/2019. Chest x-ray: Small right apical pneumothorax. Diffuse bilateral interstitial infiltrates 08/09/2019 CT angiogram: Small right pneumothorax. Multiple confluent groundglass densities throughout the lung queen bilaterally compatible with infiltrates. No pleural effusions. No pulmonary emboli cardiomegaly. No pericardial effusion. Right lung mass as described. No adenopathy 08/09/2019. Chest x-ray: Small right apical pneumothorax persists unchanged. Diffuse interstitial lung disease again noted MICROBIOLOGY: Please see below. ASSESSMENT: This is an 79-year-old white female with past medical history of uterine cancer (S/P total hysterectomy), hypertension, CAD, hypothyroidism and A. fib presenting with chest pain and shortness of breath, found to have right apical pneumothorax and interstitial infiltrates, possibly secondary to left- sided heart failure and volume overload. PLAN: 1. Shortness of breath - likely 2/2 right apical pneumothorax and/or decompens ated CHF with fluid overload vs. pneumonia -CXR and CT findings (see above) -BNP noted at 1264 -Elevated WBC at 19.1 -No fever, chills noted -Respiratory Panel Negative -Dr. Salgado consulted regarding pneumothorax (daily CXRs ordered) - case has been discussed -IV Lasix for fluid overload 2/2 CHF -IV abx with Zosyn for pneumonia coverage -Will check ECHO 2. Chest pain -Most likely secondary to Pneumothorax -EKG stable without acute findings for NM -Negative Cardiac Markers 3. Hypokalemia -Potassium noted at 3.1 -40mg oral supplement x2 4. Hypothyroidism -TSH noted to be 30 -No known adjustments in Levothyroxine recently -will increase dose of levothyroxine 5.Lung Mass -RLL lung mass noted on CT -pt currently not interested in further treatment and is planning to discuss palliative care via hospice consult -if treatment goals change, would consult pulmonology for further evaluation 6. Uterine Cancer -Pt not interested in further treatment at this point or oncology referral -Goals of care have been addressed with the patient; she has declined oncology consultation and chemotherapy; patient and (HCP) have verbalize d understanding of risks / benefits of this decision -Hospice consult to discuss palliative care Disposition: - Pending clinical improvement - hospice consult has been placed Vital Signs Vital Signs Date Time Temp Pulse Resp B/P (MAP) Pulse Ox O2 Delivery O2 Flow Rate FiO2 08/09/19 13:06 63 122/59 08/09/19 11:04 98 Nasal Cannula 2.0 08/09/19 10:40 20 08/09/19 07:24 97.1 Laboratory Data Labs 24H Laboratory Tests 2 08/09/19 06:47: Immature Granulocyte % (Auto) 1.0, Neutrophils (%) (Auto) 81.0H, Lymphocytes (%) (Auto) 5.4L, Monocytes (%) (Auto) 10.0H, Eosinophils (%) (Auto) 2.3, Basophils (%) (Auto) 0.3, Neutrophils # (Auto) 15.4H, Lymphocytes # (Auto) 1.0L, Monocytes # (Auto) 1.9H, Eosinophils # (Auto) 0.4, Basophils # (Auto) 0.1, Nucleated Red Blood Cells % (auto) 0.0, Prothrombin Time 15.1H, Prothromb Time International Ratio 1.22, Activated Partial Thromboplast Time 31.2, Anion Gap 10, Glomerular Filtration Rate > 60.0, Calcium Level 9.0, Total Bilirubin 0.5, Direct Bilirubin < 0.1, Aspartate Amino Transf (AST/SGOT) 24, Alanine Aminotransferase (ALT/SGPT) 10L, Alkaline Phosphatase 115, Total Creatine Kinase 38, Creatine Kinase MB < 1.0, Creatine Kinase MB Relative Index 2.63, Troponin I < 0.02, NS-Bfq-I-Type Natriuretic Peptide 1264H, Total Protein 6.2L, Albumin 2.1L, Albumin/Globulin Ratio 0.51L, Lipase 69L, Thyroid Stimulating Hormone (TSH) 30.600H, Free Thyroxine 1.10 08/09/19 11:25: CBC/BMP Laboratory Tests 08/09/19 06:47 Microbiology Microbiology 08/09/19 Blood Culture, Received Pending 08/09/19 Respiratory Virus Panel (PCR) (MICHELL) - Final, Complete 08/09/19 Blood Culture, Received Pending Home Medications Scheduled Amiodarone HCl (Amiodarone HCl) 200 Mg Tablet, 200 MG PO DAILY Aspirin (Aspirin EC) 81 Mg Tablet.dr, 81 MG PO DAILY Atorvastatin Calcium (Atorvastatin Calcium) 20 Mg Tablet, 20 MG PO DAILY Ferrous Gluconate (Ferrous Gluconate) 324 Mg Tablet, 324 MG PO BID Levothyroxine Sodium (Levoxyl) 125 Mcg Tablet, 125 MCG PO DAILY Lisinopril (Zestril) 5 Mg Tab, 5 MG PO DAILY Metformin HCl (Metformin HCl) 1,000 Mg Tablet, 1,000 MG PO BID Metoprolol Tartrate (Metoprolol Tartrate) 25 Mg Tablet, 12.5 MG PO BID Omeprazole (Omeprazole) 20 Mg Cap, 20 MG PO DAILY Sertraline Hcl (Sertraline HCl) 50 Mg Tablet, 50 MG PO DAILY Scheduled PRN Nitroglycerin (Nitroglycerin) 0.4 Mg Tab.subl, 0.4 MG SL NITRO PRN for CHEST PAIN Allergies Coded Allergies: No Known Allergies (Unverified , 08/09/19) A-FIB/CHADSVASC A-FIB History Current/History of A-Fib/PAF?: No GME ATTESTATION GME ATTESTATION My faculty preceptor for this patient encounter was physically present during the encounter and was fully available. All aspects of the patient interview, exa mination, medical decision making process, and medical care plan development were reviewed and approved by the faculty preceptor. The faculty preceptor is aware and concurs with the plan as stated in the body of this note and will attest to such by his/her cosignature. ATTENDING NOTE I, Pavan Urbano, have independently examined this patient and performed my own physical exam, as well as reviewed the documentation and edited where necessary. I have discussed in detail with the resident / student the findings and plan of treatment as documented by the resident / student and edited their note. I agree with their findings and treatment plan and have edited their documentation. I will continue to follow the patient during this hospital stay. SIMRAN HOLLINGSWORTH OMS-3 Aug 09, 2019 14:46 NATHAN MORGAN PGY-1 Aug 09, 2019 16:08 PAVAN URBANO MD Aug 09, 2019 16:45
[2019-08-09] MEDS: PIPERACILLIN/TAZOBACTAM SOD 3.375 GM in D5W MINI-BAG PLUS 50 ML IV SCH ×2 (15:27→20:53)
[2019-08-09] MEDS ORDERED: POTASSIUM CHLORIDE 10 MEQ SR TABLET PO ONE ×2 (15:30→19:30)
[2019-08-09] MEDS: hydrOXYzine 25 MG TAB PO PRN (15:50)
[2019-08-09 16:00] VITALS: BP 122/58
[2019-08-09] MEDS ORDERED: FUROSEMIDE 20 MG/2 ML VIAL (J1940) IV SCH (17:00)
--- NOTE | 2019-08-09 18:42 | ECHO ---
DATE OF PROCEDURE: 08/09/2019 REFERRING PHYSICIAN: Dr. Salgado INDICATION: Congestive heart failure. Height 155 cm, weight 58 kg. DIMENSIONS: IVS: 1.1 LV: 3.9 LVPW: 1.0 LA: 3.1 Aorta: 3.1 IVC: 1.4 Mitral E wave velocity: 84 A wave: 116 E prime septal: 3.7 E prime lateral: 5.2 FINDINGS: The study is of acceptable technical quality even though certainly not optimal. The patient is in sinus rhythm. Left ventricle is normal size and overall normal systolic function, I estimate left ventricular ejection fraction (LVEF) around 60%. Based on limitations of the study, I certainly cannot rule out subtle wall motion abnormality. Right ventricle appears grossly normal. Both atria appear normal. Aortic valve is heavily sclerotic, and there is some restriction of mobility of cusps, but the valve is tricuspid. By 2D imaging, I assume mild aortic stenosis. There are also degenerative abnormalities of mitral valve with mitral annular calcifications at the base of posterior mitral leaflet. Mobility of leaflets is preserved. Tricuspid and pulmonic valves appear normal. No pericardial effusion is noted. Inferior vena cava is relatively small size and collapses with respiration, indicative of likely normal central venous pressure. Aortic root is normal. Aortic arch and abdominal aorta were not well seen. Doppler interrogation of aortic valve reveals mild stenosis with mean gradient 18 mmHg and mild insufficiency. There is also mild mitral, tricuspid and pulmonic insufficiency. Calculated pulmonary artery pressure is at least in 40s or higher corresponding at minimum to moderate pulmonary hypertension. Mitral inflow pattern and tissue Doppler imaging of mitral annulus revealed grade 1 diastolic dysfunction. CONCLUSIONS: 1. Study is of fair technical quality. 2. Normal left ventricular (LV) size with preserved LV systolic function and grade 1 diastolic dysfunction. 3. Prominent aortic sclerosis on tricuspid valve resulting in mild stenosis and mild insufficiency. 4. Mild mitral, tricuspid and pulmonic insufficiency. 5. Normal central venous pressure. 6. At least moderate pulmonary hypertension. COMMENT: Subacute bacterial endocarditis (SBE) prophylaxis is not recommended.
[2019-08-09 20:00] VITALS: BP 111/53
--- NOTE | 2019-08-09 20:45 | ECGEPIP ---
[facility] - ED Test Date: 2019-08-09 Pat Name: SUNNY BEAULIEU Department: Room: - Gender: Female [employer] Lab[employer]: KCJ : 1940 Requested By: LIANA Mendez Order Number: [id number] Reading MD: Kenroy Briones Measurements Intervals [place] Rate: 69 P: -8 CO: 154 QRS: -28 QRSD: 97 T: -17 QT: 437 QTc: 471 Interpretive Statements SINUS RHYTHM BORDERLINE LEFT AXIS DEVIATION LEFT VENTRICULAR HYPERTROPHY ST-T wave changes in distribution of previous STEMI from tracing done 04-12-19 Electronically Signed on 08-09-2019 20:45:21 EST by Kenroy Briones
[2019-08-10] VITALS: BP 124/70
[2019-08-10] MEDS: PIPERACILLIN/TAZOBACTAM SOD 3.375 GM in D5W MINI-BAG PLUS 50 ML IV SCH ×3 (03:33→17:45)
[2019-08-10 04:00] VITALS: BP 146/65
[2019-08-10 05:30] LABS: HEMATOCRIT 33.2 % (36.0-47.0); HEMOGLOBIN 10.2 g/dl (12.0-15.5); MEAN CORPUSCULAR HEMOGLOBIN 25.6 pg (27.0-33.0); MEAN CORPUSCULAR HGB CONC 30.7 g/dl (32.0-36.5); MEAN CORPUSCULAR VOLUME 83.4 fl (80.0-96.0); PLATELET COUNT, AUTOMATED 587 10^3/uL (150-450); RED BLOOD COUNT 3.98 10^6/uL (4.00-5.40); WHITE BLOOD COUNT 21.3 10^3/uL (4.0-10.0)
[2019-08-10 05:48] LABS: BLOOD UREA NITROGEN 24 MG/DL (7-18); CALCIUM LEVEL 8.3 MG/DL (8.8-10.2); CARBON DIOXIDE LEVEL 31 MEQ/L (21-32); CHLORIDE LEVEL 103 MEQ/L (98-107); CREATININE FOR GFR 0.85 MG/DL (0.55-1.30); GLOMERULAR FILTRATION RATE > 60.0 (>32); GLUCOSE, FASTING 148 MG/DL (70-100); MAGNESIUM LEVEL 1.7 MG/DL (1.8-2.4); POTASSIUM SERUM 3.7 MEQ/L (3.5-5.1); SODIUM LEVEL 140 MEQ/L (136-145)
[2019-08-10] MEDS: LEVOTHYROXINE 150MCG TABLET (0.15MG) PO SCH (06:07)
--- NOTE | 2019-08-10 07:46 | REP ---
PA and lateral chest: Comparison is 08/09/2019. The right apical pneumothorax has significantly decreased and is barely visible today. Diffuse interstitial coarsening is again identified. In addition there is a focal infiltrate inferolaterally in the right upper lobe outlining the minor fissure as an interval change. Cardiac size is normal. Tory, mediastinum, skeletal structures are unremarkable. Impression: New subsegmental infiltrate inferolaterally in the right upper lobe. Right pneumothorax is barely visible. Interstitial coarsening, unchanged. Electronically Signed by Eliecer Giles MD 08/10/2019 07:37 A
[2019-08-10 08:00] VITALS: BP 108/60
[2019-08-10] MEDS ORDERED: FUROSEMIDE 40 MG/4 ML VIAL (J1940) IV SCH (09:00)
[2019-08-10] MEDS: DOCUSATE SODIUM 100 MG CAP PO SCH ×2 (09:00→21:59)
[2019-08-10] MEDS: ASPIRIN 81 MG ENTERIC TAB PO SCH (09:21)
[2019-08-10] MEDS: FERROUS GLUCONATE 324 MG TAB PO SCH ×2 (09:21→21:00)
[2019-08-10] MEDS: SERTRALINE HCL 50 MG TAB PO SCH (09:21)
[2019-08-10] MEDS: METOPROLOL TART 12.5 MG PER 1/2 TAB PO SCH ×2 (09:21→22:00)
[2019-08-10] MEDS: MAG SULF 1GM/100ML (MAG RUN) 1 GM in IV 1 EA IV ONE ×2 (09:21→10:42)
[2019-08-10] MEDS: LISINOPRIL 5 MG TAB PO SCH (09:22)
[2019-08-10] MEDS: AMIODARONE 200 MG TAB (PACERONE) PO SCH (09:22)
[2019-08-10] MEDS: ATORVASTATIN 20 MG TAB PO SCH (09:22)
[2019-08-10] MEDS: ENOXAPARIN 40 MG/0.4 ML SYRINGE (J1650) SC SCH (09:22)
[2019-08-10] MEDS: OMEPRAZOLE 20 MG CAP PO SCH (09:22)
--- NOTE | 2019-08-10 09:31 | IPN ---
DATE: 08/10/2019 Ms. Grace is still requiring increasing amounts of oxygen. She is on a nonrebreather with an oxygen flow rate of 15 liters, with that she is 98% saturated. Her vital signs show a maximum temperature (t-max) of 98.6 with a heart rate that ranges between 53 and 60 in a sinus rhythm, respiratory rate of 20 to 21 without the use of accessory muscles, who is 93 to 100% saturated on the above oxygen requirements. Blood pressure is ranging between 111/53 to 146/65. Her intake and output over the past 24 hours has been recorded as 220 in and 400 out for a negativity of 180 mL. She has had two incontinent voids. Her weight today is 60.6 kg compared to 57.7 kg yesterday. PHYSICAL EXAMINATION: LUNGS: She has bilateral rales on both sides during the entire inspiratory cycle. I hear no expiratory wheezing. Percussion note is full to the diaphragm. There is no subcutaneous emphysema over the chest wall. CARDIAC EXAM: Shows the same 2 to 3 systolic ejection murmur. I cannot feel his point of maximum impulse (PMI). S1, S2 are normal. ABDOMEN: Soft, nontender. Bowel sounds positive. There is no hepatomegaly. No costovertebral angle tenderness. EXTREMITIES: Show no pretibial edema. No calf tenderness. No differential swelling of the upper extremities. There is maybe trace to mild ankle edema. SKIN: Warm, dry and perfused without cyanosis or mottling, including that of the nail beds and knees. NECK: Supple. There is no jugular venous distention. No subcutaneous emphysema. Trachea is midline. MOUTH: Shows his mucous membranes to be pink but dry. Lips and commissures without lesions. There is no thrush. EYES: Show his pupils to be equal and reactive. Extraocular motion intact. Sclerae anicteric. NEUROLOGIC: Shows II through XII intact with gross motor and gross sensation intact. Gait is not tested. PSYCHIATRIC: Shows him to be awake and alert, oriented times three with appropriate mood and affect and conversational. Her white count today is 21.3, up from 19.1 yesterday. Hemoglobin and hematocrit are 10.2 and 33.2 with a platelet count of 587. Yesterday's differential showed predominant neutrophils. There is no differential today. Chemistries today show normal electrolytes with a BUN and creatinine of 24 and 0.85 with a glucose of 148, calcium 8.3, and magnesium 1.7. Her chest x-ray shows an improvement in the pneumothorax. There is an almost imaginary sliver of pneumothorax at the cupula. She still has diffuse alveolar infiltrates throughout. This looks to be pulmonary edema. Lateral chest x-ray shows the same. There are no lobar infiltrates. The study is done PA and lateral. Costophrenic angles are sharp. Her echocardiogram done yesterday shows preserved left ventricular systolic function with an ejection fraction of 60%. There is some evidence of only grade 1 diastolic dysfunction. There is mild aortic stenosis with a gradient of 18 mmHg. Aortic valve also shows some mild insufficiency. There is also mild mitral tricuspid insufficiency. She has pulmonary hypertension with a pulmonary pressure in the 40s. IMPRESSION: 1. Small spontaneous right pneumothorax, resolving. 2. Diffuse alveolar infiltrative pattern consistent with pulmonary edema. 3. Mild aortic stenosis. 4. Heart failure with increased BNP. 5. Hypothyroidism. 6. Hypertension. 7. Amiodarone exposure. 8. Uterine cancer, probably metastatic lung and manifested by large hilar mass with cavitation. PLAN/DISCUSSION: I am still not quite sure what is causing her hypoxia and x-ray and CT picture of what looks to be alveolar edema. I cannot invoke cardiogenic origin as her systolic function is normal and she only has mild diastolic dysfunction. This by definition is therefore noncardiogenic pulmonary edema, and with her high white count I am going to have to seriously consider infectious source. She is already on Zosyn. The other possibility is amiodarone pneumonitis; however, that usually ends in fibrotic changes rather than alveolar edema. Her renal function is normal and I cannot blame the pulmonary edema on renal dysfunction. I will continue to monitor her chest x-ray for pneumothorax. Her hypokalemia is now resolved and corrected. I noted yesterday that the chest CT did not look like lymphangitic involvement from her metastatic uterine cancer.
[2019-08-10] MEDS ORDERED: NS 1,000 ML IV SCH (10:15)
[2019-08-10 12:00] VITALS: BP 126/60
--- NOTE | 2019-08-10 14:16 | IPNPDOC ---
Date Seen The patient was seen on 08/10/19. Progress Note SUBJECTIVE: Pt seen sitting comfortably with her nebulizer today. She reports significant improvement in her SOB and chest pain. She is still occasionally SOB at rest but says nebulizers have helped. She didnt have any acute complaints. Denies any pain, N/V, dizziness, tingling. Pt's daughter was visiting today and was interested in why pt's uterine cancer was deemed "end stage" as well as the potential for hospice care. Pt and daughter were counseled. OBJECTIVE PHYSICAL EXAMINATION: VITAL SIGNS: Please see below. GENERAL: Patient is pleasant and cooperative, sitting up comfortably in chair with nebulizer, alert and oriented in no acute distress HEENT: Normocephalic, atraumatic. Thinning of hair. Small mole on pt's left eyebrow. No scleral icterus. PERRLA. EOMI. No nasal discharge. No tracheal deviation. No obvious swollen lymph nodes CARDIOVASCULAR: Regular rate and rhythm. Normal S1 and S2. 2/6 Aortic Stenosis murmur,no gallops or rubs noted RESPIRATORY: Symmetric chest wall motion. clear to auscultation b/l. ABDOMINAL:. No obvious lesions noted. Normal bowel sounds in all 4 quadrants. No pain, tenderness, guarding or rigidity EXTREMITIES:. 2/4 pulses noted throughout. normal capillary refill. No leg swelling or tenderness NEUROLOGICAL: A&O x3. Spontaneous movements of all extremities. No focal deficits noted PSYCHOLOGICAL: Mood and affect were appropriate LABORATORY DATA, MICROBIOLOGY: Please see below. Imagin08/09/2019. Chest x-ray: Small right apical pneumothorax. Diffuse bilateral interstitial infiltrates 08/09/2019 CT angiogram: Small right pneumothorax. Multiple confluent groundglass densities throughout the lung queen bilaterally compatible with infiltrates. No pleural effusions. No pulmonary emboli cardiomegaly. No pericardial effusion. Right lung mass as described. No adenopathy 08/09/2019. Chest x-ray: Small right apical pneumothorax persists unchanged. Diffuse interstitial lung disease again noted 08/10/2019 CXR: New subsegmental infiltrate inferolaterally in the right upper lobe. Right pneumothorax is barely visible. Interstitial coarsening, unchanged. ASSESSMENT AND PLAN: This is an 79-year-old white female with past medical history of uterine cancer (S/P total hysterectomy), hypertension, CAD, hypothyroidism and A. fib presenting with chest pain and shortness of breath, found to have right apical pneumothorax and interstitial infiltrates, possibly secondary to left-sided heart failure and volume overload vs. infectious etiology. PROBLEMS: 1. Shortness of breath - likely 2/2 right apical pneumothorax and/or decompen sated diastolic CHF with fluid overload, possibly 2/2 healthcare associated pneumonia -CXR shows improvement in pneumothorax -Pneumo possible 2/2 to infectious etiology -Lactic acid: 4.9; will repeat within 4 hours -Elevated WBC at 21.3 -CRP at 17.10 -No fever, chills noted -Respiratory Panel Negative -Dr. Salgado consulted regarding pneumothorax (daily CXRs ordered) - case has been discussed -IV NS due to elevated LA -IV q6hr Zosyn for pneumonia coverage -Pending Echo 2. s/p Chest pain -Most likely secondary to Pneumothorax -Pt denied chest pain today -EKG stable without acute findings for UT -Negative Cardiac Markers 3. Hypokalemia -Potassium increased to 3.7 from 3.1 4. Hypothyroidism -Levothyroxine increased to 150 mcg 5.Lung Mass -RLL lung mass noted on CT -pt currently not interested in further treatment and is planning to discuss palliative care via hospice consult -if treatment goals change, would consult pulmonology for further evaluation 6. Uterine Cancer -Pt not interested in further treatment at this point or oncology referral -Goals of care have been addressed with the patient; she has declined oncology consultation and chemotherapy; patient and (HCP) have verbalized understanding of risks / benefits of this decision -Requesting paperwork regarding diagnosis of "end-stage uterine cancer." from Dr. Solano (Gynecologic oncology) -Pending hospice consult DVT Prophylaxis: - Will DC Lovenox - will start TEDs and Sequentials Disposition: - Pending clinical improvement - hospice consult has been placed VS, I&O, 24H, Fishbone Vital Signs/I&O Vital Signs Date Time Temp Pulse Resp B/P (MAP) Pulse Ox O2 Delivery O2 Flow Rate FiO2 08/10/19 12:00 15.0 08/10/19 09:21 64 108/60 08/10/19 08:00 97.2 18 97 High Flow Cannula 08/09/19 16:02 100 I&O- Last 24 Hours up to 6 AM 08/10/19 05:59 Intake Total 340 ml Output Total 420 ml Balance -80 ml Laboratory Data 24H LABS Laboratory Tests 2 08/10/19 05:10: Nucleated Red Blood Cells % (auto) 0.0, Anion Gap 6L, Glomerular Filtration Rate > 60.0, Calcium Level 8.3L, Magnesium Level 1.7L, C-Reactive Protein, Quantitative 17.10H 08/10/19 08:25: Lactic Acid Level 4.9*H CBC/BMP Laboratory Tests 08/10/19 05:10 Microbiology Microbiology 08/09/19 Blood Culture - Preliminary, Resulted No growth after 24 hours . All specim... 08/09/19 Respiratory Virus Panel (PCR) (MICHELL) - Final, Complete 08/09/19 Blood Culture - Preliminary, Resulted No growth after 24 hours . All specim... GME ATTESTATION GME ATTESTATION My faculty preceptor for this patient encounter was physically present during the encounter and was fully available. All aspects of the patient interview, examination, medical decision making process, and medical care plan development were reviewed and approved by the faculty preceptor. The faculty preceptor is aware and concurs with the plan as stated in the body of this note and will attest to such by his/her cosignature. ATTENDING NOTE I, Pavan Urbano, have independently examined this patient and performed my own physical exam, as well as reviewed the documentation and edited where necessary. I have discussed in detail with the resident / student the findings and plan of treatment as documented by the resident / student and edited their note. I agree with their findings and treatment plan and have edited their documentation. I will continue to follow the patient during this hospital stay. Plan: - Clinically the patient appears to be without any distress - She is seen sitting up comfortably in the chair with nasal cannula in place and she has reported that her breathing is doing significantly better - This morning patient had a lactic acid that was drawn and found to be 0.9 - Diuretics have been discontinued and gentle IV fluid hydration has been started - Patient's healthcare proxy, her sister was present at the bedside - I have addressed all her questions and concerns and agree that we will request the records from Dr. Solano of gynecologic oncology SIMRAN HOLLINGSWORTH-3 Aug 10, 2019 14:16 PAVAN URBANO MD Aug 10, 2019 14:47
--- NOTE | 2019-08-10 15:58 | REP ---
Portable chest, 03:23 p.m., single AP view with the patient sitting: Comparison is from 07:27 earlier today. There is diffuse interstitial coarsening. This appears to have worsened. Fall small focal subsegmental infiltrate inferolaterally in the right upper lobe is unchanged. The right pneumothorax is no longer visible. There are no pleural effusions. Cardiac size is normal. Impression: Worsening interstitial coarsening. Electronically Signed by Eliecer Giles MD 08/10/2019 03:50 P
[2019-08-10 16:00] VITALS: BP 138/63
[2019-08-10 16:04] LABS: BASO # 0.1 10^3/uL (0.0-0.2); BASO % 0.4 % (0.0-1.0); EOS # 0.8 10^3/uL (0.0-0.5); EOS % 4.3 % (0.0-3.0); HEMATOCRIT 34.3 % (36.0-47.0); HEMOGLOBIN 10.3 g/dl (12.0-15.5); LYMPH # 1.2 10^3/uL (1.5-5.0); LYMPH % 5.9 % (24.0-44.0); MEAN CORPUSCULAR HEMOGLOBIN 25.6 pg (27.0-33.0); MEAN CORPUSCULAR VOLUME 85.1 fl (80.0-96.0); NEUTROPHILS # 15.3 10^3/uL (1.5-8.5); NEUTROPHILS % 77.2 % (36.0-66.0); PLATELET COUNT, AUTOMATED 594 10^3/uL (150-450); RED BLOOD COUNT 4.03 10^6/uL (4.00-5.40); WHITE BLOOD COUNT 19.7 10^3/uL (4.0-10.0)
[2019-08-10 16:20] LABS: C REACTIVE PROTEIN QUANTITATIV 15.1 MG/DL (0.00-0.30); MAGNESIUM LEVEL 2.2 MG/DL (1.8-2.4)
[2019-08-10 17:08] LABS: MONO # 2.2 10^3/uL (0.0-0.8)
[2019-08-10] MEDS ORDERED: FUROSEMIDE 40 MG/4 ML VIAL (J1940) IV ONE (17:30)
[2019-08-10] MEDS ORDERED: VANCOMYCIN HCL 750 MG, VIAL MATE ADAPTER 1 EACH in D5W 250 ML IV SCH (18:00)
[2019-08-10] MEDS ORDERED: VANCOMYCIN HCL 1,000 MG, VIAL MATE ADAPTER 1 EACH in D5W 250 ML IV ONE (19:00)
[2019-08-10] MEDS ORDERED: AZITHROMYCIN INJ 500 MG, VIAL MATE ADAPTER 1 EACH in D5W 250 ML IV ONE (19:00)
--- NOTE | 2019-08-10 19:39 | PHACANCOPD ---
PHARMACY VANCOMYCIN DOSING Pt Demographics Demographics Patient Age:79 , Weight:60.600 , Gender: female Adjusted Body Weight Date: 08/10/19, Adjusted Body Weight: [52.92] Kg Events Past 24 Hours Events Past 24 Hours: NO: Dialysis, Diuretic Therapy, Change in CrCl, Fever, Elevation in WBC, Pending Diagnostics, Pending Procedures, Other Vancomycin Vancomycin indication: MRSA Vancomycin Target Ranges: 15-20 mcg/ml Vancomycin Load Y/N: Yes Load Dose Date Time Vancomycin Load Dose: 1.5G Date: 08/10/19 Time: 1900 Vancomycin Dose Date: 08/10/19. Current Vancomycin Dose: [1G Q24H] Intermittent Dosing?: No Labs Labs Vital Signs Label Value Date Time Patient Temperature 98.1 degrees F 08/10/19 1200 Patient Temperature 97.9 degrees F 08/10/19 1600 Patient Temperature 97.2 degrees F 08/10/19 0800 Blood Pressure Assessment 126/60 (82) 08/10/19 1200 Blood Pressure Assessment 138/63 (88) 08/10/19 1600 Item Value Date Time White Blood Count 19.1 10^3/uL H 08/09/19 0647 White Blood Count 21.3 10^3/uL H 08/10/19 0510 White Blood Count 19.7 10^3/uL H 08/10/19 1526 Creatinine 0.85 MG/DL 08/10/19 0510 Lactic Acid Level 4.9 MMOL/L *H 08/10/19 0825 Lactic Acid Followup at 4 Hours 5.8 MMOL/L *H 08/10/19 1353 Methicillin-Resist S.aureus DNA PCR NOT DETECTED 08/10/19 1612 Micro Microbiology 08/09/19 Blood Culture - Preliminary, Resulted No growth after 24 hours . All specim... 08/09/19 Respiratory Virus Panel (PCR) (MICHELL) - Final, Complete 08/09/19 Blood Culture - Preliminary, Resulted No growth after 24 hours . All specim... Creatinine Clearance Date:08/10/19. Creatinine Clearance: [33.3 IBW]. Assessment and Plan Maintaining Current Dose?: Yes Reason for dose change: No Dose Change Pharmacist Note Pharmacist Note Date: 08/10/19. Pharmacist note: VANCO D/C'D BY THE END OF THIS ENTRY ALEXSANDRA VELAZQUEZ, PHARMACY Aug 10, 2019 19:39
[2019-08-10 20:00] VITALS: BP 138/65
[2019-08-10] MEDS ORDERED: VANCOMYCIN HCL 500 MG in D5W MINI-BAG PLUS 100 ML IV ONE (20:00)
[2019-08-11] VITALS (7 sets, daily range): BP systolic 106–140; BP diastolic 40–80; PULSE 50
[2019-08-11] MEDS: PIPERACILLIN/TAZOBACTAM SOD 3.375 GM in D5W MINI-BAG PLUS 50 ML IV SCH ×2 (00:42→05:48)
[2019-08-11] MEDS: ACETAMINOPHEN TAB 650MG DOSE (2X325MG) PO PRN ×2 (00:55→22:42)
[2019-08-11] MEDS: LEVOTHYROXINE 150MCG TABLET (0.15MG) PO SCH (05:48)
[2019-08-11 06:06] LABS: HEMATOCRIT 31.8 % (36.0-47.0); HEMOGLOBIN 9.6 g/dl (12.0-15.5); MEAN CORPUSCULAR HEMOGLOBIN 25.2 pg (27.0-33.0); MEAN CORPUSCULAR HGB CONC 30.2 g/dl (32.0-36.5); MEAN CORPUSCULAR VOLUME 83.5 fl (80.0-96.0); PLATELET COUNT, AUTOMATED 514 10^3/uL (150-450); RED BLOOD COUNT 3.81 10^6/uL (4.00-5.40); WHITE BLOOD COUNT 16.6 10^3/uL (4.0-10.0)
[2019-08-11 06:36] LABS: BLOOD UREA NITROGEN 20 MG/DL (7-18); CALCIUM LEVEL 7.8 MG/DL (8.8-10.2); CARBON DIOXIDE LEVEL 31 MEQ/L (21-32); CHLORIDE LEVEL 98 MEQ/L (98-107); CREATININE FOR GFR 0.71 MG/DL (0.55-1.30); GLOMERULAR FILTRATION RATE > 60.0 (>32); GLUCOSE, FASTING 96 MG/DL (70-100); MAGNESIUM LEVEL 1.9 MG/DL (1.8-2.4); POTASSIUM SERUM 2.7 MEQ/L (3.5-5.1); SODIUM LEVEL 138 MEQ/L (136-145)
[2019-08-11] MEDS ORDERED: KCL 10MEQ/100ML SWI (KRUN) 10 MEQ in IV 1 EA IV SCH (07:00)
[2019-08-11] MEDS ORDERED: POTASSIUM CHLORIDE 10 MEQ SR TABLET PO ONE ×3 (07:15→21:30)
--- NOTE | 2019-08-11 08:26 | REP ---
PA and lateral chest, 08:08 a.m.: Comparisons are the portable chest and PA and lateral chest. Both of 08/10/2019. There is diffuse interstitial coarsening. This is unchanged. There is a subsegmental infiltrate inferolaterally in the right upper lobe. This is unchanged. There is no visible pneumothorax. There is a large fixed hiatal hernia with an air-fluid level, unchanged. Cardiac size is normal. The barbara, mediastinum, skeletal structures are unremarkable. Impression: There is no interval change. Electronically Signed by Eliecer Giles MD 08/11/2019 08:17 A
[2019-08-11] MEDS: ENOXAPARIN 40 MG/0.4 ML SYRINGE (J1650) SC SCH (08:34)
[2019-08-11] MEDS: FERROUS GLUCONATE 324 MG TAB PO SCH ×2 (08:34→21:24)
[2019-08-11] MEDS: LISINOPRIL 5 MG TAB PO SCH (08:35)
[2019-08-11] MEDS: ATORVASTATIN 20 MG TAB PO SCH (08:35)
[2019-08-11] MEDS: DOCUSATE SODIUM 100 MG CAP PO SCH ×2 (08:35→21:24)
[2019-08-11] MEDS: OMEPRAZOLE 20 MG CAP PO SCH (08:35)
[2019-08-11] MEDS: METOPROLOL TART 12.5 MG PER 1/2 TAB PO SCH ×2 (08:35→21:23)
[2019-08-11] MEDS: SERTRALINE HCL 50 MG TAB PO SCH (08:35)
[2019-08-11] MEDS: AMIODARONE 200 MG TAB (PACERONE) PO SCH (08:36)
[2019-08-11] MEDS: ASPIRIN 81 MG ENTERIC TAB PO SCH (08:36)
--- NOTE | 2019-08-11 09:54 | IPNPDOC ---
Date Seen The patient was seen on 08/11/19. Progress Note SUBJECTIVE: Patient was seen and examined today, lying comfortably in bed. She is on nasal cannula and reports some shortness of breath, which is stable from yesterday, but not improved. She denies any pain in her chest and states the pain when she was breathing has significantly improved. Otherwise, she denies any additional complaints. She is eating without N/V, reports daily BMs without diarrhea, and denies any dysuria or urinary frequency. OBJECTIVE PHYSICAL EXAMINATION: VITAL SIGNS: Please see below. GENERAL: Patient is pleasant and cooperative, laying comfortably in bed, alert and oriented, in no acute distress HEENT: Normocephalic, atraumatic. Thinning of hair. Small mole on pt's left eyebrow. No scleral icterus. PERRLA. EOMI. No nasal discharge. No tracheal deviation. No obvious swollen lymph nodes CARDIOVASCULAR: Regular rate and rhythm. Normal S1 and S2. 2/6 Aortic Stenosis murmur,no gallops or rubs noted RESPIRATORY: Symmetric chest wall motion. clear to auscultation b/l. ABDOMINAL:. No obvious lesions noted. Normal bowel sounds in all 4 quadrants. No pain, tenderness, guarding or rigidity EXTREMITIES:. 2/4 pulses noted throughout. normal capillary refill. No leg swelling or tenderness NEUROLOGICAL: A&O x3. Spontaneous movements of all extremities. No focal deficits noted PSYCHOLOGICAL: Mood and affect were appropriate LABORATORY DATA, MICROBIOLOGY: Please see below. Imagin08/09/2019. Chest x-ray: Small right apical pneumothorax. Diffuse bilateral interstitial infiltrates 08/09/2019 CT angiogram: Small right pneumothorax. Multiple confluent groun dglass densities throughout the lung queen bilaterally compatible with infiltrates. No pleural effusions. No pulmonary emboli cardiomegaly. No pericardial effusion. Right lung mass as described. No adenopathy 08/09/2019. Chest x-ray: Small right apical pneumothorax persists unchanged. Diffuse interstitial lung disease again noted 08/10/2019 CXR: New subsegmental infiltrate inferolaterally in the right upper lobe. Right pneumothorax is barely visible. Interstitial coarsening, unchanged. 08/09/2019 Echocardiogram: 1. Study is of fair technical quality. 2. Normal left ventricular (LV) size with preserved LV systolic function and grade 1 diastolic dysfunction. 3. Prominent aortic sclerosis on tricuspid valve resulting in mild stenosis and mild insufficiency. 4. Mild mitral, tricuspid and pulmonic insufficiency. 5. Normal central venous pressure. 6. At least moderate pulmonary hypertension. ASSESSMENT AND PLAN: This is an 79-year-old white female with past medical history of uterine cancer (S/P total hysterectomy), hypertension, CAD, hypothyroidism and A. fib presenting with chest pain and shortness of breath, found to have right apical pneumothorax and interstitial infiltrates, possibly secondary to left-sided heart failure and volume overload vs. infectious etiology. PROBLEMS: 1. Shortness of breath - likely 2/2 right apical pneumothorax and/or decompensated diastolic CHF with fluid overload, possibly 2/2 healthcare associated pneumonia -CXR shows improvement in pneumothorax but worsening interstitial infiltrates -Pneumo possible related to infectious etiology, Azithromycin and cefdinir for pneumonia coverage -Lactic acid remains elevated at 5.2, WBC improving at 16.6, CRP improved at 11.3 -Dr. Salgado consulted regarding pneumothorax (Daily CXRs ordered) - case has been discussed -Echo results as above -Continue supplemental oxygen -Continue lasix for fluid overload Elevated Lactic acid - possibly 2/2 work of breathing, possibly 2/2 underlying m etastatic malignancy - Unclear etiology - Clinically patient appears to have some signs of volume overload; crackles / LE edema - Patient's WBC / CRP have been resolving - Will hold off on additional IV fluids (re: volume overload) - Plan to provide Lasix today (re: awaiting results of repeat BMP - K supplementation) 2. s/p Chest pain -Most likely secondary to Pneumothorax -Pt denied chest pain today -EKG stable without acute findings for DC -Negative Cardiac Markers 3. Hypokalemia -Potassium low again, likely related to lasix -oral potassium supplement as she did not tolerate IV 4. Hypothyroidism -Levothyroxine increased to 150 mcg on admission for elevated TSH 5. Lung Mass - RLL lung mass noted on CT; imaging findings have been discussed with the patient and family. She is aware of the findings and currently will not be pursuing any further evaluation; patient is aware of the risks of such a decision - including, but not limited to - Pt currently not interested in further treatment and is planning to discuss palliative care via hospice consult -if treatment goals change, would consult pulmonology for further evaluation 6. Uterine Cancer -Pt not interested in further treatment at this point or oncology referral -Goals of care have been addressed with the patient; she has declined oncology consultation and chemotherapy; patient and (HCP) have verbalized understanding of risks / benefits of this decision -Requesting paperwork regarding diagnosis of "end-stage uterine cancer" from Dr. Solano (Gynecologic oncology) -Pending hospice consult DVT Prophylaxis: - TEDs and Sequentials Disposition: - Pending clinical improvement - hospice consult has been placed VS, I&O, 24H, Fishbone Vital Signs/I&O Vital Signs Date Time Temp Pulse Resp B/P (MAP) Pulse Ox O2 Delivery O2 Flow Rate FiO2 08/11/19 08:41 92 Nasal Cannula 4.0 08/11/19 08:00 97.9 54 18 112/80 (91) 08/09/19 16:02 100 I&O- Last 24 Hours up to 6 AM 08/11/19 05:59 Intake Total 475 ml Output Total 1025 ml Balance -550 ml Laboratory Data 24H LABS Laboratory Tests 2 08/10/19 13:53: Lactic Acid Followup at 4 Hours 5.8*H 08/10/19 15:26: Immature Granulocyte % (Auto) 1.2, Neutrophils (%) (Auto) 77.2H, Lymphocytes (%) (Auto) 5.9L, Monocytes (%) (Auto) 11.0H, Eosinophils (%) (Auto) 4.3H, Basophils (%) (Auto) 0.4, Neutrophils # (Auto) 15.3H, Lymphocytes # (Auto) 1.2L, Monocytes # (Auto) 2.2H, Eosinophils # (Auto) 0.8H, Basophils # (Auto) 0.1, Nucleated Red Blood Cells % (auto) 0.0, Magnesium Level 2.2, C-Reactive Protein, Quantitative 15.10H, FD-Uov-T-Type Natriuretic Peptide 791H 08/10/19 16:12: Methicillin-Resist S.aureus DNA PCR NOT DETECTED 08/10/19 18:53: Lactic Acid Level 5.7*H 08/10/19 23:10: Lactic Acid Followup at 4 Hours 5.2*H 08/11/19 05:49: Nucleated Red Blood Cells % (auto) 0.0, Anion Gap 9, Glomerular Filtration Rate > 60.0, Calcium Level 7.8L, Magnesium Level 1.9, C-Reactive Protein, Quantitative 11.30H CBC/BMP Laboratory Tests 08/10/19 15:26 08/11/19 05:49 Microbiology Microbiology 08/09/19 Blood Culture - Preliminary, Resulted No Growth after 48 hours. All Specime... 08/09/19 Respiratory Virus Panel (PCR) (MICHELL) - Final, Complete 08/09/19 Blood Culture - Preliminary, Resulted No Growth after 48 hours. All Specime... GME ATTESTATION GME ATTESTATION My faculty preceptor for this patient encounter was physically present during the encounter and was fully available. All aspects of the patient interview, examination, medical decision making process, and medical care plan development were reviewed and approved by the faculty preceptor. The faculty preceptor is aware and concurs with the plan as stated in the body of this note and will attest to such by his/her cosignature. ATTENDING NOTE I, Pavan Urbano, have independently examined this patient and performed my own physical exam, as well as reviewed the documentation and edited where necessary. I have discussed in detail with the resident / student the findings and plan of treatment as documented by the resident / student and edited their note. I agree with their findings and treatment plan and have edited their documentation. I will continue to follow the patient during this hospital stay. NATHAN MORGAN PGY-1 Aug 11, 2019 09:54 PAVAN URBANO MD Aug 11, 2019 13:04
[2019-08-11 10:37] LABS: CK-MB VALUE MASS < 1.0 NG/ML (<3.6); CPK CREATINE PHOSPHOKINASE 19 U/L (26-192); MB/CK RELATIVE INDEX 5.26 (< OR =4); TROPONIN I < 0.02 NG/ML (< 0.10)
--- NOTE | 2019-08-11 10:39 | REP ---
Portable chest, 10:00 a.m., single AP view the patient semi upright: Comparison is the PA and lateral chest performed earlier today and portable chest of 04/12/2019. There is an diffuse advanced bilateral interstitial coarsening, unchanged from study earlier today but significantly worsened from 04/12/2019. There is a focal subsegmental infiltrate inferolaterally in the right upper lobe, unchanged from the study earlier today. There are no pleural effusions. The patient is rotated. Cardiac size is normal. There is a fixed hiatal hernia, unchanged. The barbara, mediastinum, skeletal structures are unremarkable. There is no pneumothorax. Impression: No change from the study earlier today. The diffuse bilateral interstitial coarsening is significantly worsened 04/12/2019 but unchanged from study earlier today. Electronically Signed by Eliecer Giles MD 08/11/2019 10:31 A
[2019-08-11] MEDS: CEFDINIR 300 MG CAP (OMNICEF) PO SCH ×2 (12:27→21:24)
[2019-08-11] MEDS: AZITHROMYCIN 250 MG TAB PO SCH (12:27)
[2019-08-11 15:20] LABS: BLOOD UREA NITROGEN 19 MG/DL (7-18); CALCIUM LEVEL 7.9 MG/DL (8.8-10.2); CARBON DIOXIDE LEVEL 29 MEQ/L (21-32); CHLORIDE LEVEL 103 MEQ/L (98-107); CREATININE FOR GFR 0.65 MG/DL (0.55-1.30); GLOMERULAR FILTRATION RATE > 60.0 (>32); GLUCOSE, FASTING 121 MG/DL (70-100); MAGNESIUM LEVEL 1.9 MG/DL (1.8-2.4); POTASSIUM SERUM 3.6 MEQ/L (3.5-5.1); SODIUM LEVEL 139 MEQ/L (136-145)
[2019-08-11] MEDS ORDERED: VANCOMYCIN HCL 1,000 MG, VIAL MATE ADAPTER 1 EACH in D5W 250 ML IV SCH (20:00)
[2019-08-11] MEDS ORDERED: FUROSEMIDE 40 MG/4 ML VIAL (J1940) IV ONE (21:30)
[2019-08-11] MEDS: hydrOXYzine 25 MG TAB PO PRN (21:30)
[2019-08-12] VITALS (7 sets, daily range): BP systolic 100–168; BP diastolic 50–73; PULSE 61
[2019-08-12] MEDS ORDERED: traMADol 50 MG TAB PO ONE (04:00)
[2019-08-12 04:07] LABS: HEMATOCRIT 31.1 % (36.0-47.0); HEMOGLOBIN 9.4 g/dl (12.0-15.5); MEAN CORPUSCULAR HEMOGLOBIN 25.2 pg (27.0-33.0); MEAN CORPUSCULAR HGB CONC 30.2 g/dl (32.0-36.5); MEAN CORPUSCULAR VOLUME 83.4 fl (80.0-96.0); PLATELET COUNT, AUTOMATED 537 10^3/uL (150-450); RED BLOOD COUNT 3.73 10^6/uL (4.00-5.40)
[2019-08-12] MEDS: LEVOTHYROXINE 150MCG TABLET (0.15MG) PO SCH (04:17)
[2019-08-12 04:23] LABS: BLOOD UREA NITROGEN 20 MG/DL (7-18); CALCIUM LEVEL 7.7 MG/DL (8.8-10.2); CARBON DIOXIDE LEVEL 29 MEQ/L (21-32); CHLORIDE LEVEL 105 MEQ/L (98-107); CREATININE FOR GFR 0.61 MG/DL (0.55-1.30); GLOMERULAR FILTRATION RATE > 60.0 (>32); GLUCOSE, FASTING 107 MG/DL (70-100); MAGNESIUM LEVEL 1.8 MG/DL (1.8-2.4); POTASSIUM SERUM 4.1 MEQ/L (3.5-5.1); SODIUM LEVEL 142 MEQ/L (136-145)
[2019-08-12 04:24] LABS: CK-MB VALUE MASS < 1.0 NG/ML (<3.6); CPK CREATINE PHOSPHOKINASE 17 U/L (26-192); MB/CK RELATIVE INDEX 5.88 (< OR =4); TROPONIN I < 0.02 NG/ML (< 0.10)
[2019-08-12] MEDS: ASPIRIN 81 MG ENTERIC TAB PO SCH (09:01)
[2019-08-12] MEDS: SERTRALINE HCL 50 MG TAB PO SCH (09:01)
[2019-08-12] MEDS: FERROUS GLUCONATE 324 MG TAB PO SCH ×2 (09:01→20:35)
[2019-08-12] MEDS: ACETAMINOPHEN TAB 650MG DOSE (2X325MG) PO PRN ×2 (09:02→16:56)
[2019-08-12] MEDS: OMEPRAZOLE 20 MG CAP PO SCH (09:02)
[2019-08-12] MEDS: AZITHROMYCIN 250 MG TAB PO SCH (09:02)
[2019-08-12] MEDS: ATORVASTATIN 20 MG TAB PO SCH (09:03)
[2019-08-12] MEDS: CEFDINIR 300 MG CAP (OMNICEF) PO SCH (09:03)
[2019-08-12] MEDS: AMIODARONE 200 MG TAB (PACERONE) PO SCH (09:03)
[2019-08-12] MEDS: METOPROLOL TART 12.5 MG PER 1/2 TAB PO SCH ×2 (09:03→20:36)
[2019-08-12] MEDS: DOCUSATE SODIUM 100 MG CAP PO SCH (09:03)
[2019-08-12] MEDS: LISINOPRIL 5 MG TAB PO SCH (09:03)
[2019-08-12] MEDS ORDERED: ALBUTEROL SULFATE 2.5 MG/0.5 ML INH NEB SOLN NEB ONE (11:30)
[2019-08-12 11:58] LABS: HEMATOCRIT 30.9 % (36.0-47.0); HEMOGLOBIN 9.3 g/dl (12.0-15.5); MEAN CORPUSCULAR HEMOGLOBIN 25.3 pg (27.0-33.0); MEAN CORPUSCULAR HGB CONC 30.1 g/dl (32.0-36.5); MEAN CORPUSCULAR VOLUME 84.2 fl (80.0-96.0); RED BLOOD COUNT 3.67 10^6/uL (4.00-5.40)
[2019-08-12 12:01] LABS: BASO % 0.4 % (0.0-1.0); LYMPH % 3.7 % (24.0-44.0); MONO % 7.4 % (0.0-5.0); NEUTROPHILS % 85.9 % (36.0-66.0)
[2019-08-12 12:02] LABS: BASO # 0.1 10^3/uL (0.0-0.2); EOS # 0.2 10^3/uL (0.0-0.5); LYMPH # 0.7 10^3/uL (1.5-5.0); MONO # 1.5 10^3/uL (0.0-0.8); NEUTROPHILS # 17.2 10^3/uL (1.5-8.5)
[2019-08-12 12:04] LABS: PLATELET COUNT, AUTOMATED 523 10^3/uL (150-450)
--- NOTE | 2019-08-12 12:17 | ECGEPIP ---
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
--- NOTE | 2019-08-12 13:36 | IPNPDOC ---
Text Note Date of Service The patient was seen on 08/12/19. NOTE Subjective: Patient is an 79-year-old female with past medical history of A. fib, HTN, CAD, Hypothyroidism, Uterine cancer (S/P total hysterectomy), presenting with chest pain and shortness of breath, found to have right apical pneumothorax and interstitial infiltrates, possibly secondary to left-sided heart failure and volume overload vs. infectious etiology. Patient was seen and examined at the bedside. Patient reports that she still experiences some shortness of breath. She denies any chest pain or palpitations. Has not experienced any significant cough. Denies nausea, vomiting, abdominal pain, diarrhea, or urinary discomfort. Objective: Vitals (See below) General: Lying in bed, no acute distress, comfortable, AAOx3 HEENT: NC, AT CVS: RRR, +S1S2 Lungs: Fair air entry b/l, crackles appreciated at b/l lung queen, no rhonchi / wheezing Abdomen: Soft, ND, NT Extremities: - Edema, - Calf tenderness Imagin08/09/2019. Chest x-ray: Small right apical pneumothorax. Diffuse bilateral interstitial infiltrates 08/09/2019 CT angiogram: Small right pneumothorax. Multiple confluent gr oundglass densities throughout the lung queen bilaterally compatible with infiltrates. No pleural effusions. No pulmonary emboli cardiomegaly. No pericardial effusion. Right lung mass as described. No adenopathy 08/09/2019. Chest x-ray: Small right apical pneumothorax persists unchanged. Diffuse interstitial lung disease again noted 08/09/2019 Echocardiogram: 1. Study is of fair technical quality. 2. Normal left ventricular (LV) size with preserved LV systolic function and grade 1 diastolic dysfunction. 3. Prominent aortic sclerosis on tricuspid valve resulting in mild stenosis and mild insufficiency. 4. Mild mitral, tricuspid and pulmonic insufficiency. 5. Normal central venous pressure. 6. At least moderate pulmonary hypertension. 08/10/2019 CXR: New subsegmental infiltrate inferolaterally in the right upper lobe. Right pneumothorax is barely visible. Interstitial coarsening, unchanged. 08/11 CXR: No change from the study earlier today. The diffuse bilateral interstitial coarsening is significantly worsened 04/12/2019 but unchanged from study earlier today. Assessment and plan: Shortness of breath - likely 2/2 right apical pneumothorax and/or decompensated diastolic CHF with fluid overload, possibly 2/2 healthcare associated pneumonia - Currently patient still reports having some shortness of breath, is not experience any productive cough - Remains hemodynamic stable and afebrile - Leukocytosis has been trending up; CRPs have remained stable - Cultures have remained negative - Will re-escalate antibiotic therapy to Zosyn with Azithromycin (Gram negative, anaerobic coverage and atypical) - Appreciate Dr. Salgado's input - Will discuss with Pulmonology Elevated Lactic acid - possibly 2/2 work of breathing, possibly 2/2 underlying metastatic malignancy - Unclear etiology - Clinically patient appears to have some signs of volume overload; crackles / LE edema - Will re-adjust antibiotics for increased coverage - Will hold off on additional IV fluids (re: volume overload) - c/w Diuresis s/p Chest pain - likely 2/2 pneumothorax - EKG stable without acute findings for AL - Troponins have remained negative s/p Hypokalemia - likely 2/2 diuretics Hypothyroidism - c/w Levothyroxine Lung Mass - RLL lung mass noted on CT; imaging findings have been discussed with the patient and family - she is aware of the findings and currently will not be pursuing any further evaluation; patient is aware of the risks of such a decision - including, but not limited to - Pt currently not interested in further treatment and is planning to discuss palliative care via hospice consult - if treatment goals change, would consult pulmonology for further evaluation Uterine Cancer - Pt not interested in further treatment at this point or oncology referral - Goals of care have been addressed with the patient; she has declined oncology consultation and chemotherapy; patient and (HCP) have verbalized understanding of risks / benefits of this decision - Requesting paperwork regarding diagnosis of "end-stage uterine cancer" from Dr. Solano (Gynecologic oncology) - Pending hospice consult GERD - c/w Omeprazole DVT prophylaxis - c/w TEDs / Sequentials Disposition: - Pending clinical improvement - hospice consult has been placed VS,Joelbone, I+O VS, Fishbone, I+O Laboratory Tests 08/11/19 14:06 08/12/19 03:54 08/12/19 11:45 Vital Signs Date Time Temp Pulse Resp B/P (MAP) Pulse Ox O2 Delivery O2 Flow Rate FiO2 08/12/19 12:24 94 High Flow Cannula 4.0 08/12/19 12:00 97.6 54 20 128/58 (81) 08/09/19 16:02 100 l I&O- Last 24 Hours up to 6 AM 08/12/19 06:00 Intake Total 1350 ml Output Total 700 ml Balance 650 ml NATAN SHARIF MD Aug 12, 2019 13:36
[2019-08-12] MEDS ORDERED: FUROSEMIDE 40 MG/4 ML VIAL (J1940) IV ONE (13:45)
[2019-08-12] MEDS: PIPERACILLIN/TAZOBACTAM SOD 3.375 GM in D5W MINI-BAG PLUS 50 ML IV SCH ×2 (14:35→20:36)
[2019-08-13] VITALS: BP 118/58
[2019-08-13] MEDS: PIPERACILLIN/TAZOBACTAM SOD 3.375 GM in D5W MINI-BAG PLUS 50 ML IV SCH ×4 (01:18→20:23)
[2019-08-13 04:00] VITALS: BP 130/70
[2019-08-13] MEDS: LEVOTHYROXINE 150MCG TABLET (0.15MG) PO SCH (05:42)
[2019-08-13 05:48] LABS: HEMATOCRIT 31.3 % (36.0-47.0); HEMOGLOBIN 9.4 g/dl (12.0-15.5); MEAN CORPUSCULAR HEMOGLOBIN 25.2 pg (27.0-33.0); MEAN CORPUSCULAR VOLUME 83.9 fl (80.0-96.0); PLATELET COUNT, AUTOMATED 446 10^3/uL (150-450); RED BLOOD COUNT 3.73 10^6/uL (4.00-5.40); WHITE BLOOD COUNT 19.8 10^3/uL (4.0-10.0)
[2019-08-13 06:13] LABS: BLOOD UREA NITROGEN 24 MG/DL (7-18); CALCIUM LEVEL 7.8 MG/DL (8.8-10.2); CARBON DIOXIDE LEVEL 28 MEQ/L (21-32); CHLORIDE LEVEL 103 MEQ/L (98-107); CREATININE FOR GFR 0.75 MG/DL (0.55-1.30); GLOMERULAR FILTRATION RATE > 60.0 (>32); GLUCOSE, FASTING 142 MG/DL (70-100); MAGNESIUM LEVEL 1.8 MG/DL (1.8-2.4); POTASSIUM SERUM 3.5 MEQ/L (3.5-5.1); SODIUM LEVEL 140 MEQ/L (136-145)
[2019-08-13] MEDS: ATORVASTATIN 20 MG TAB PO SCH (07:51)
[2019-08-13] MEDS: OMEPRAZOLE 20 MG CAP PO SCH (07:51)
[2019-08-13] MEDS: AZITHROMYCIN 250 MG TAB PO SCH (07:51)
[2019-08-13] MEDS: SERTRALINE HCL 50 MG TAB PO SCH (07:51)
[2019-08-13] MEDS: ASPIRIN 81 MG ENTERIC TAB PO SCH (07:52)
[2019-08-13] MEDS: AMIODARONE 200 MG TAB (PACERONE) PO SCH (07:52)
[2019-08-13] MEDS: METOPROLOL TART 12.5 MG PER 1/2 TAB PO SCH ×2 (07:52→20:23)
[2019-08-13] MEDS: LISINOPRIL 5 MG TAB PO SCH (07:52)
[2019-08-13] MEDS: FERROUS GLUCONATE 324 MG TAB PO SCH ×2 (07:53→20:23)
[2019-08-13 08:00] VITALS: BP 142/67
[2019-08-13] MEDS: ACETAMINOPHEN TAB 650MG DOSE (2X325MG) PO PRN ×2 (08:39→20:33)
[2019-08-13] MEDS ORDERED: MAG SULF 1GM/100ML (MAG RUN) 1 GM in IV 1 EA IV ONE (09:00)
[2019-08-13] MEDS ORDERED: POTASSIUM CHLORIDE 10 MEQ SR TABLET PO ONE (09:00)
[2019-08-13] MEDS ORDERED: SLF 3 ML SYR IV PRN (10:30)
[2019-08-13] MEDS: SLF 3 ML SYR IV SCH ×2 (11:36→20:23)
[2019-08-13 12:00] VITALS: BP 122/60
--- NOTE | 2019-08-13 13:36 | IPNPDOC ---
Date Seen The patient was seen on 08/13/19. Progress Note SUBJECTIVE: Patient was seen at bedside today. She explains she is feeling worse this morning describing weakness and lethargy. She also complains of increased shortness of breath compared to the last few days. Doesn't feel that the nebulizers are working. She denies any cough. When asked about urination, she claims she is going less frequently having 1 small morning void. . She denied any symptoms of dysuria, frequency, urgency. She is had no problems with bowel movements. She denies any chest pain, dizziness, changes in mentation, nausea or vomiting. OBJECTIVE PHYSICAL EXAMINATION: VITAL SIGNS: Please see below. GENERAL: Patient is pleasant and cooperative, sitting up comfortably in bed, alert and oriented in no acute distress HEENT: Normocephalic, atraumatic. Thinning of hair. Small mole on pt's left eyebrow. Conjunctival pallor. No scleral icterus. PERRLA. EOMI. No nasal disc harge. No tracheal deviation. No obvious swollen lymph nodes CARDIOVASCULAR: Regular rate and rhythm. Normal S1 and S2. 2/6 Aortic Stenosis murmur, no gallops or rubs noted RESPIRATORY: Symmetric chest wall motion. Mild crackles heard in lower lobes b/l. No rhochi or rubs noted. ABDOMINAL: No obvious lesions noted. Normal bowel sounds in all 4 quadrants. No pain, tenderness, guarding or rigidity EXTREMITIES: 2/4 pulses noted throughout. normal capillary refill. No leg swelling or tenderness NEUROLOGICAL: A&O x3. Spontaneous movements of all extremities. No focal deficits noted PSYCHOLOGICAL: Mood and affect were appropriate LABORATORY DATA, MICROBIOLOGY: Please see below. 08/09/2019. Chest x-ray: Small right apical pneumothorax. Diffuse bilateral interstitial infiltrates 08/09/2019 CT angiogram: Small right pneumothorax. Multiple confluent ground- glass densities throughout the lung queen bilaterally compatible with infiltrates. No pleural effusions. No pulmonary emboli cardiomegaly. No pericardial effusion. Right lung mass as described. No adenopathy 08/09/2019. Chest x-ray: Small right apical pneumothorax persists unchanged. Diffuse interstitial lung disease again noted 08/10/2019 CXR: New subsegmental infiltrate inferolaterally in the right upper lobe. Right pneumothorax is barely visible. Interstitial coarsening, unchanged. 08/11/2019 CXR: No change from the study earlier today. The diffuse bilateral interstitial coarsening is significantly worsened 04/12/2019 but unchanged from study earlier today. Echocardiogram: 08/09/2019 Echocardiogram: 1. Study is of fair technical quality. 2. Normal left ventricular (LV) size with preserved LV systolic function and grade 1 diastolic dysfunction. 3. Prominent aortic sclerosis on tricuspid valve resulting in mild stenosis and mild insufficiency. 4. Mild mitral, tricuspid and pulmonic insufficiency. 5. Normal central venous pressure. 6. At least moderate pulmonary hypertension. ASSESSMENT AND PLAN: This is an 79-year-old white female past history of uterine cancer (S/P total hysterectomy) hypertension, COPD, hypothyroidism, and A. fib presented with chest pain, shortness of breath, found to have right apical pneumothorax interstitial infiltrates, possibly secondary to left-sided heart failure, volume overload. PROBLEMS: Shortness of breath - likely 2/2 right apical pneumothorax and/or decompensated diastolic CHF with fluid overload, possibly 2/2 healthcare associated pneumonia - Patient still reports having some shortness of breath, she does not complain of a productive cough - Remains hemodynamic stable and afebrile -WBC at 19.8 today compared to 20 yesterday -CRP down today at 10.3 from 10.9 - Cultures have remained negative -Continue antibiotic therapy with Zosyn with Azithromycin (Gram negative, anaerobic coverage and atypical) - Appreciate Dr. Salgado's input Elevated Lactic acid - possibly 2/2 work of breathing, possibly 2/2 underlying metastatic malignancy -B/L lower lobe crackles - Patient appears to have some signs of volume overload - Will hold off on additional IV fluids - c/w Diuresis s/p Chest pain - likely 2/2 pneumothorax -Resolved - Troponins have remained negative s/p Hypokalemia - likely 2/2 diuretics -today measures at 3.5 -ordered 20meq of K po once Hypothyroidism - c/w Levothyroxine Lung Mass - RLL lung mass noted on CT; imaging findings have been discussed with the patient and family - she is aware of the findings and currently will not be pursuing any further evaluation; patient is aware of the risks of such a decision - including, but not limited to - Pt currently not interested in further treatment and is planning to discuss palliative care via hospice consult - if treatment goals change, would consult pulmonology for further evaluation Uterine Cancer - Pt not interested in further treatment at this point or oncology referral - Goals of care have been addressed with the patient; she has declined oncology consultation and chemotherapy; patient and (HCP) have verbalized understanding of risks / benefits of this decision - requested paperwork shows "end-stage" classification was based on supposed micrometastases of uterine cancer. - Pending hospice consult GERD - c/w Omeprazole DVT prophylaxis - c/w TEDs / Sequentials DISPOSITION: - Pending clinical improvement - hospice consult has been placed ATTENDING PHYSICIAN ADDENDUM: I have independently interviewed and examined the patient at the bedside. I agre e with the physical findings and management plan which I have discussed with my Resident physician, as documented above. Patient's questions have been answered, and patient has been satisfactorily updated about her treatment plan. VS, I&O, 24H, Fishbone Vital Signs/I&O Vital Signs Date Time Temp Pulse Resp B/P (MAP) Pulse Ox O2 Delivery O2 Flow Rate FiO2 08/13/19 12:00 97.2 62 18 122/60 (80) 95 Nasal Cannula 6.0 08/09/19 16:02 100 I&O- Last 24 Hours up to 6 AM 08/13/19 06:00 Intake Total 995 ml Output Total 800 ml Balance 195 ml Laboratory Data 24H LABS Laboratory Tests 2 08/13/19 05:34: Nucleated Red Blood Cells % (auto) 0.0, Anion Gap 9, Glomerular Filtration Rate > 60.0, Calcium Level 7.8L, Magnesium Level 1.8, C-Reactive Protein, Quantitative 10.30H CBC/BMP Laboratory Tests 08/13/19 05:34 Microbiology Microbiology 08/09/19 Blood Culture - Preliminary, Resulted No Growth after 72 hours. All specime... 08/09/19 Respiratory Virus Panel (PCR) ([facility]) - Final, Complete 08/09/19 Blood Culture - Preliminary, Resulted No Growth after 72 hours. All specime... SIMRAN HOLLINGSWORTH-3 Aug 13, 2019 13:36 CAMMIE FRIAS MD Aug 13, 2019 14:25
[2019-08-13 16:00] VITALS: BP 150/70
[2019-08-13 19:35] VITALS: BP 148/68
[2019-08-14] VITALS: BP 118/64
[2019-08-14] MEDS: PIPERACILLIN/TAZOBACTAM SOD 3.375 GM in D5W MINI-BAG PLUS 50 ML IV SCH ×3 (01:54→15:16)
[2019-08-14] MEDS: hydrOXYzine 25 MG TAB PO PRN (01:57)
[2019-08-14 04:00] VITALS: BP 122/60
[2019-08-14 05:59] LABS: HEMATOCRIT 30.6 % (36.0-47.0); HEMOGLOBIN 9.5 g/dl (12.0-15.5); MEAN CORPUSCULAR HEMOGLOBIN 25.5 pg (27.0-33.0); PLATELET COUNT, AUTOMATED 401 10^3/uL (150-450); RED BLOOD COUNT 3.73 10^6/uL (4.00-5.40)
[2019-08-14] MEDS: LEVOTHYROXINE 150MCG TABLET (0.15MG) PO SCH (06:03)
[2019-08-14] MEDS: ACETAMINOPHEN TAB 650MG DOSE (2X325MG) PO PRN ×2 (06:03→16:43)
[2019-08-14] MEDS: SLF 3 ML SYR IV SCH ×3 (06:04→21:38)
[2019-08-14 06:17] LABS: BLOOD UREA NITROGEN 27 MG/DL (7-18); CALCIUM LEVEL 8.1 MG/DL (8.8-10.2); CARBON DIOXIDE LEVEL 29 MEQ/L (21-32); CHLORIDE LEVEL 104 MEQ/L (98-107); CREATININE FOR GFR 0.69 MG/DL (0.55-1.30); GLOMERULAR FILTRATION RATE > 60.0 (>32); GLUCOSE, FASTING 124 MG/DL (70-100); MAGNESIUM LEVEL 2.4 MG/DL (1.8-2.4); POTASSIUM SERUM 3.4 MEQ/L (3.5-5.1); SODIUM LEVEL 141 MEQ/L (136-145)
[2019-08-14] MEDS ORDERED: POTASSIUM CHLORIDE 10 MEQ SR TABLET PO ONE (07:45)
[2019-08-14 07:56] VITALS: BP 122/60
[2019-08-14] MEDS: METOPROLOL TART 12.5 MG PER 1/2 TAB PO SCH (07:56)
[2019-08-14] MEDS: OMEPRAZOLE 20 MG CAP PO SCH (07:57)
[2019-08-14] MEDS: FERROUS GLUCONATE 324 MG TAB PO SCH (07:57)
[2019-08-14] MEDS: AMIODARONE 200 MG TAB (PACERONE) PO SCH (07:57)
[2019-08-14] MEDS: ASPIRIN 81 MG ENTERIC TAB PO SCH (07:57)
[2019-08-14] MEDS: AZITHROMYCIN 250 MG TAB PO SCH (07:57)
[2019-08-14] MEDS: ATORVASTATIN 20 MG TAB PO SCH (07:57)
[2019-08-14] MEDS: SERTRALINE HCL 50 MG TAB PO SCH (07:58)
[2019-08-14] MEDS: LISINOPRIL 5 MG TAB PO SCH (07:58)
[2019-08-14 08:00] VITALS: BP 130/70
[2019-08-14] MEDS ORDERED: FUROSEMIDE 40 MG/4 ML VIAL (J1940) IV ONE (10:15)
--- NOTE | 2019-08-14 11:30 | IPNPDOC ---
Date Seen The patient was seen on 08/14/19. Progress Note SUBJECTIVE: Patient was seen on comfortably in bed. She states she continues to feel short of breath and just returned to bed from the bathroom, which exacerbated her shortness of breath. She states overall she feels slightly worse than yesterday. She denies any recurrence of her chest pain. She states she has had a somewhat decreased appetite. She denies any other issues. OBJECTIVE PHYSICAL EXAMINATION: VITAL SIGNS: Please see below. GENERAL: Patient is pleasant and cooperative, sitting up comfortably in bed, alert and oriented in no acute distress HEENT: Normocephalic, atraumatic. Thinning of hair. Small mole on pt's left eyebrow. Conjunctival pallor. No scleral icterus. PERRLA. EOMI. No nasal discharge. No tracheal deviation. No obvious swollen lymph nodes CARDIOVASCULAR: Regular rate and rhythm. Normal S1 and S2. 2/6 Aortic Stenosis murmur, no gallops or rubs noted RESPIRATORY: Symmetric chest wall motion. Mild crackles heard in lower lobes b/l. No rhochi or rubs noted. ABDOMINAL: No obvious lesions noted. Normal bowel sounds in all 4 quadrants. No pain, tenderness, guarding or rigidity EXTREMITIES: 2/4 pulses noted throughout. normal capillary refill. No leg swell ing or tenderness NEUROLOGICAL: A&O x3. Spontaneous movements of all extremities. No focal deficits noted PSYCHOLOGICAL: Mood and affect were appropriate LABORATORY DATA, MICROBIOLOGY: Please see below. 08/09/2019. Chest x-ray: Small right apical pneumothorax. Diffuse bilateral interstitial infiltrates 08/09/2019 CT angiogram: Small right pneumothorax. Multiple confluent ground- glass densities throughout the lung queen bilaterally compatible with infiltrates. No pleural effusions. No pulmonary emboli cardiomegaly. No pericardial effusion. Right lung mass as described. No adenopathy 08/09/2019. Chest x-ray: Small right apical pneumothorax persists unchanged. Diffuse interstitial lung disease again noted 08/10/2019 CXR: New subsegmental infiltrate inferolaterally in the right upper lobe. Right pneumothorax is barely visible. Interstitial coarsening, unchanged. 08/11/2019 CXR: No change from the study earlier today. The diffuse bilateral interstitial coarsening is significantly worsened 04/12/2019 but unchanged from study earlier today. Echocardiogram: 08/09/2019 Echocardiogram: 1. Study is of fair technical quality. 2. Normal left ventricular (LV) size with preserved LV systolic function and grade 1 diastolic dysfunction. 3. Prominent aortic sclerosis on tricuspid valve resulting in mild stenosis and mild insufficiency. 4. Mild mitral, tricuspid and pulmonic insufficiency. 5. Normal central venous pressure. 6. At least moderate pulmonary hypertension. ASSESSMENT AND PLAN: This is an 79-year-old white female past history of uterine cancer (S/P total hysterectomy) hypertension, COPD, hypothyroidism, and A. fib presented with chest pain, shortness of breath, found to have right apical pneumothorax interstitial infiltrates, possibly secondary to left-sided heart failure, volume overload. PROBLEMS: Shortness of breath - likely 2/2 right apical pneumothorax and/or decompensated diastolic CHF with fluid overload, possibly 2/2 healthcare associated pneumonia - Pneumothorax has resolved per CXR findings, appreciate Dr. Salgado's input - Patient still reports having some shortness of breath, she does not complain of a productive cough - WBC slightly increased today from 19.8 to 22.0, CRP increased from 10.3 to 12.6, Blood cx negative, respiratory panel pending - Continue antibiotic coverage with Zosyn with Azithromycin (Gram negative, anaerobic coverage and atypical) day #3 of 7 - Will give another dose of IV lasix today for fluid overload - Continue O2 therapy to maintain saturations above 92% Elevated Lactic acid - possibly 2/2 work of breathing, possibly 2/2 underlying metastatic malignancy - Will hold off on additional IV fluids, no clear evidence of sepsis - c/w Diuresis, given additional dose of 40 IV Lasix today. s/p Chest pain - likely 2/2 pneumothorax - Resolved - Troponins have remained negative s/p Hypokalemia - likely 2/2 diuretics -today measures at 3.5 -ordered 20meq of K po once Hypothyroidism - c/w Levothyroxine Lung Mass - RLL lung mass noted on CT; imaging findings have been discussed with the patient and family - she is aware of the findings and currently will not be pursuing any further evaluation; patient is aware of the risks of such a decision - including, but not limited to - Pt currently not interested in further treatment and is planning to discuss palliative care via hospice consult - if treatment goals change, would consult pulmonology for further evaluation Uterine Cancer - Pt not interested in further treatment at this point or oncology referral - Goals of care have been addressed with the patient; she has declined oncology consultation and chemotherapy; patient and (HCP) have verbalized understanding of risks / benefits of this decision - requested paperwork shows "end-stage" classification was based on supposed micrometastases of uterine cancer. - Pending hospice consult GERD - c/w Omeprazole DVT prophylaxis - c/w TEDs / Sequentials DISPOSITION: Pending clinical improvement, hospice consult pending ATTENDING NOTE I have personally evaluated and examined the patient. Discussed with residents and student regarding plan of care and agree with the above assessment and plan. Discussed with patient and family throughout the date as more arrives including patient's sister, and son. Patient states that she just wants to be kept comfortable but is not interested in further medical treatments. 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 Patient and family wishes to go home with hospice care, hopefully can be arranged. To stop most medications, blood draws and vital sign monitoring. VS, I&O, 24H, Fishbone Vital Signs/I&O Vital Signs Date Time Temp Pulse Resp B/P (MAP) Pulse Ox O2 Delivery O2 Flow Rate FiO2 08/14/19 08:00 97.7 72 20 130/70 (90) 96 High Flow Mask 8.0 08/09/19 16:02 100 I&O- Last 24 Hours up to 6 AM 08/14/19 06:00 Intake Total 800 ml Output Total 650 ml Balance 150 ml Laboratory Data 24H LABS Laboratory Tests 2 08/14/19 05:10: Nucleated Red Blood Cells % (auto) 0.0, Anion Gap 8, Glomerular Filtration Rate > 60.0, Calcium Level 8.1L, Magnesium Level 2.4, C-Reactive Protein, Quantitative 12.60H CBC/BMP Laboratory Tests 08/14/19 05:10 Microbiology Microbiology 08/09/19 Blood Culture - Final, Complete NO GROWTH AFTER 5 DAYS 08/09/19 Respiratory Virus Panel (PCR) ([facility]) - Final, Complete 08/09/19 Blood Culture - Final, Complete NO GROWTH AFTER 5 DAYS NATHAN MORGAN PGY-1 Aug 14, 2019 11:30 AMELIA GREY MD Aug 14, 2019 19:01
[2019-08-14 12:00] VITALS: BP 140/58
[2019-08-14 16:00] VITALS: BP 147/67
--- NOTE | 2019-08-14 17:38 | REP ---
Portable chest x-ray: Sitting AP view. History: Chest pressure. Comparison study: August 11, 2019. Findings: Extensive diffuse interstitial infiltrates are seen throughout the lungs bilaterally. This may be very slightly improved on the right and in the left upper lung zone region. No new area of consolidation is seen. Monitoring electrodes and oxygen delivery tubing are again seen. Vascular calcifications noted. Impression: Extensive interstitial pulmonary disease and infiltrate. Slight improvement on the right. No new infiltrate. Electronically Signed by Roscoe Corrales MD 08/14/2019 05:29 P
[2019-08-14 18:07] LABS: CK-MB VALUE MASS < 1.0 NG/ML (<3.6); CPK CREATINE PHOSPHOKINASE 17 U/L (26-192); MB/CK RELATIVE INDEX 5.88 (< OR =4); TROPONIN I < 0.02 NG/ML (< 0.10)
[2019-08-14] MEDS ORDERED: MORPHINE 2 MG/ML 1ML VIAL (J2270) IV ONE (18:15)
[2019-08-14] MEDS ORDERED: LORazepam 2 MG/ML VIAL (J2060) IV PRN (18:30)
[2019-08-14] MEDS ORDERED: MORPHINE 2 MG/ML 1ML VIAL (J2270) IV PRN (18:30)
[2019-08-14] MEDS ORDERED: BISACODYL 10 MG SUPP PR PRN (18:30)
[2019-08-14] MEDS ORDERED: ONDANSETRON 4MG/2ML VIAL (J2405) IV PRN (18:30)
[2019-08-14] MEDS: MORPHINE 2 MG/ML 1ML VIAL (J2270) IV PRN (21:45)
[2019-08-15] MEDS: MORPHINE 2 MG/ML 1ML VIAL (J2270) IV PRN ×6 (02:01→20:20)
[2019-08-15] MEDS: hydrOXYzine 25 MG TAB PO PRN ×3 (04:05→18:06)
[2019-08-15] MEDS: SLF 3 ML SYR IV SCH ×3 (05:59→20:23)
--- NOTE | 2019-08-15 06:14 | ECGEPIP ---
[facility] Test Date: 2019-08-14 Pat Name: SUNNY BEAULIEU Department: Room: [place] [address] Gender: Female Ski Topper: CHIP : [id number] Requested By: NATHAN MORGAN PGY-1 Order Number: [id number] Reading MD: Dunia Nails Measurements Intervals Josephine Rate: 81 P: -56 DC: 152 QRS: -23 QRSD: 94 T: -29 QT: 324 QTc: 377 Interpretive Statements SINUS RHYTHM POSSIBLE LEFT ATRIAL ENLARGEMENT INFERIOR MYOCARDIAL INFARCTION, OF INDETERMINATE AGE STTWABN AGAIN SEEN C/W 08/11/19 RATE FASTER Electronically Signed on 08-15-2019 6:14:13 EST by Dunia Nails
--- NOTE | 2019-08-15 13:33 | IPNPDOC ---
Date Seen The patient was seen on 08/15/19. 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 She states she is still feeling short of breath but otherwise feels comfortable. She has no additional complaints. OBJECTIVE PHYSICAL EXAMINATION: General: Pt appears comfortable with mild respiratory distress. She is on the h igh flow nasal cannula for comfort. 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 CONSTRUCTION PLUMBER - d/c all labs, home medications, treatment medications, and vital sign monitoring - morphine prn for pain/discomfort, lorazepam prn for anxiety - pending hospice consult 2. shorness of breath - continue O2 support for comfort - medications as above for comfort and symptoms relief DISPOSITION: pending hospice consult ATTENDING NOTE I have personally evaluated and examined the patient. Discussed with residents and student regarding plan of care and agree with the above assessment and plan. VS, I&O, 24H, Fishbone Vital Signs/I&O Vital Signs Date Time Temp Pulse Resp B/P (MAP) Pulse Ox O2 Delivery O2 Flow Rate FiO2 08/14/19 21:45 20 08/14/19 20:00 8.0 08/14/19 16:00 98.1 79 147/67 (93) 94 High Flow Cannula 08/09/19 16:02 100 I&O- Last 24 Hours up to 6 AM 08/15/19 06:00 Intake Total 300 ml Output Total 450 ml Balance -150 ml Laboratory Data 24H LABS Laboratory Tests 2 08/14/19 17:13: Total Creatine Kinase 17L, Creatine Kinase MB < 1.0, Creatine Kinase MB Relative Index 5.88H, Troponin I < 0.02 Microbiology Microbiology 08/09/19 Blood Culture - Final, Complete NO GROWTH AFTER 5 DAYS 08/09/19 Respiratory Virus Panel (PCR) ([facility]) - Final, Complete 08/09/19 Blood Culture - Final, Complete NO GROWTH AFTER 5 DAYS NATHAN MORGAN PGY-1 Aug 15, 2019 13:33 AMELIA GREY MD Aug 15, 2019 15:06
[2019-08-16] MEDS: hydrOXYzine 25 MG TAB PO PRN ×2 (01:54→22:36)
[2019-08-16] MEDS: MORPHINE 2 MG/ML 1ML VIAL (J2270) IV PRN (02:18)
[2019-08-16] MEDS ORDERED: LORazepam 2 MG/ML VIAL (J2060) IV PRN (02:45)
[2019-08-16] MEDS ORDERED: MORPHINE 4 MG/ML 1ML VIAL/SYRINGE (J2270) IV PRN (04:30)
[2019-08-16] MEDS: SLF 3 ML SYR IV SCH ×3 (05:28→22:00)
[2019-08-16] MEDS ORDERED: ONDANSETRON 4 MG ORAL DISINTEGRATING TAB (Q0162 PER 1MG) PO PRN (11:15)
[2019-08-16] MEDS ORDERED: HYDR-3363 PO (11:30)
[2019-08-16] MEDS ORDERED: ATIV1TAB7 PO (11:30)
[2019-08-16] MEDS: LORazepam 1 MG TAB PO PRN ×3 (11:30→23:49)
[2019-08-16] MEDS ORDERED: Morphine Sulfate Oral Conc. SL (11:30)
--- NOTE | 2019-08-16 13:26 | IPNPDOC ---
Date Seen The patient was seen on 08/16/19. 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 She states she is still feeling short of breath but otherwise feels comfortable. She has no additional complaints. OBJECTIVE PHYSICAL EXAMINATION: General: Pt appears comfortable with mild respiratory distress. She is on the h igh flow nasal cannula for comfort. 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 BINDERY HELPER - d/c all labs, home medications, treatment medications, and vital sign monitoring - IV discontinued, switched to oral medications - morphine prn for pain/discomfort, lorazepam and hydroxyzine prn for anxiety - pending hospice consult 2. shortness of breath - continue O2 support for comfort - medications as above for comfort and symptoms relief DISPOSITION: family discussion this afternoon to discuss home with hospice vs. hospice placement ATTENDING NOTE I have personally evaluated and examined the patient. Discussed with residents and student regarding plan of care and agree with the above assessment and plan. VS, I&O, 24H, Fishbone Vital Signs/I&O Vital Signs Date Time Temp Pulse Resp B/P (MAP) Pulse Ox O2 Delivery O2 Flow Rate FiO2 08/16/19 12:10 8.0 08/16/19 02:18 23 08/15/19 20:20 Nasal Cannula 08/14/19 16:00 98.1 79 147/67 (93) 94 I&O- Last 24 Hours up to 6 AM 08/16/19 06:00 Intake Total 240 ml Output Total 0 ml Balance 240 ml Laboratory Data Microbiology Microbiology 08/09/19 Blood Culture - Final, Complete NO GROWTH AFTER 5 DAYS 08/09/19 Respiratory Virus Panel (PCR) ([facility]) - Final, Complete 08/09/19 Blood Culture - Final, Complete NO GROWTH AFTER 5 DAYS NATHAN MORGAN PGY-1 Aug 16, 2019 13:26 AMELIA GREY MD Aug 16, 2019 13:55
[2019-08-16] MEDS: MORPHINE 10MG/0.5ML ORAL CONCENTRATE SOLUTION U/D SL PRN ×3 (18:20→23:38)
[2019-08-16] MEDS ORDERED: ACETAMINOPHEN 650MG ER TAB (TYLENOL ARTHRITIS) PO PRN (22:45)
[2019-08-16] MEDS: IBUPROFEN 600 MG TAB PO PRN (23:50)
[2019-08-17] MEDS: SLF 3 ML SYR IV SCH ×2 (05:40→14:00)
--- NOTE | 2019-08-17 11:44 | IPNPDOC ---
Date Seen The patient was seen on 08/17/19. 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 She states she does continue to feel short of breath but the oxygen, ativan, hydroxyzine, and morphine are helping. She denies any new or additional complaints. OBJECTIVE PHYSICAL EXAMINATION: General: Pt appears comfortable with mild respiratory distress. She is on the high flow nasal cannula for comfort. 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 shortness of breath - continue O2 support for comfort - medications as above for comfort and symptoms relief DISPOSITION: plan for d/c to hospice on Monday 08/20 ATTENDING NOTE I have personally evaluated and examined the patient. Discussed with residents and student regarding plan of care and agree with the above assessment and plan. VS, I&O, 24H, Fishbone Vital Signs/I&O Vital Signs Date Time Temp Pulse Resp B/P (MAP) Pulse Ox O2 Delivery O2 Flow Rate FiO2 08/17/19 10:31 8.0 08/16/19 21:30 22 08/15/19 20:20 Nasal Cannula 08/14/19 16:00 98.1 79 147/67 (93) 94 I&O- Last 24 Hours up to 6 AM 08/17/19 06:00 Intake Total 260 ml Output Total 0 ml Balance 260 ml Laboratory Data Microbiology Microbiology 08/09/19 Blood Culture - Final, Complete NO GROWTH AFTER 5 DAYS 08/09/19 Respiratory Virus Panel (PCR) ([facility]) - Final, Complete 08/09/19 Blood Culture - Final, Complete NO GROWTH AFTER 5 DAYS NATHAN MORGAN PGY-1 Aug 17, 2019 11:44 AMELIA GREY MD Aug 17, 2019 19:21
[2019-08-17] MEDS: MORPHINE 10MG/0.5ML ORAL CONCENTRATE SOLUTION U/D SL PRN ×2 (20:06→22:37)
[2019-08-17] MEDS: hydrOXYzine 25 MG TAB PO PRN (20:06)
[2019-08-17] MEDS: LORazepam 1 MG TAB PO PRN (22:37)
[2019-08-18] MEDS: MORPHINE 10MG/0.5ML ORAL CONCENTRATE SOLUTION U/D SL PRN ×5 (01:25→22:02)
[2019-08-18] MEDS: LORazepam 1 MG TAB PO PRN ×6 (01:25→22:02)
--- NOTE | 2019-08-18 11:20 | IPNPDOC ---
Date Seen The patient was seen on 08/18/19. 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 She denies any new or additional complaints. She does still have some shortness of breath but reports feeling more comfortable today. OBJECTIVE PHYSICAL EXAMINATION: General: Pt appears comfortable with mild respiratory distress. 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 shortness of breath - continue O2 support for comfort if pt desires - medications as above for comfort and symptoms relief DISPOSITION: plan for d/c to hospice on Monday 08/20 ATTENDING NOTE I have personally evaluated and examined the patient. Discussed with residents and student regarding plan of care and agree with the above assessment and plan. VS, I&O, 24H, Fishbone Vital Signs/I&O Vital Signs Date Time Temp Pulse Resp B/P (MAP) Pulse Ox O2 Delivery O2 Flow Rate FiO2 08/18/19 04:51 26 08/17/19 20:00 8.0 08/15/19 20:20 Nasal Cannula 08/14/19 16:00 98.1 79 147/67 (93) 94 I&O- Last 24 Hours up to 6 AM 08/18/19 06:00 Intake Total 390 ml Output Total 0 ml Balance 390 ml Laboratory Data Microbiology Microbiology 08/09/19 Blood Culture - Final, Complete NO GROWTH AFTER 5 DAYS 08/09/19 Respiratory Virus Panel (PCR) ([facility]) - Final, Complete 08/09/19 Blood Culture - Final, Complete NO GROWTH AFTER 5 DAYS NATHAN MORGAN PGY-1 Aug 18, 2019 11:20 AMELIA GREY MD Aug 18, 2019 15:24
[2019-08-18] MEDS: IBUPROFEN 600 MG TAB PO PRN (23:24)
[2019-08-18] MEDS: hydrOXYzine 25 MG TAB PO PRN (23:25)
[2019-08-19] MEDS: MORPHINE 10MG/0.5ML ORAL CONCENTRATE SOLUTION U/D SL PRN (00:10)
[2019-08-19] MEDS: LORazepam 1 MG TAB PO PRN (00:10)
[2019-08-19] MEDS ORDERED: LORazepam 1 MG TAB PO PRN (01:00)
--- NOTE | 2019-08-19 14:49 | DS.PDOC ---
Discharge Summary General Date of Admission Aug 09, 2019 at 09:54 Date of Discharge 08/19/19 Discharge Summary NOTE/DISCHARGE SUMMARY ADMITTING DIAGNOSES: 1. Lung mass 2. Uterine cancer s/p hysterectomy 3. HTN 4. CAD 5. SOB 6. Hypothyroid 7. Chest pain 8. Afib HOSPITAL COURSE: Patient is a 79F with a recent diagnosis of Uterine cancer, hypothyroid, HTN, CAD, Afib presented to the ER with complaints of chest pain and SOB found to have a small pneumothorax, pleural effusion, lung mass and diffuse bilateral infiltrates. She was treated for Pneumonia and monitored with serial CXR for Pneumothorax. Patient reportedly had goals of care discussion prior to this admission, declined oncology consultation and chemotherapy understanding the risk and benefits. 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 Patient states that she wished to be kept comfortable only and discontinue any further treatment. Hospice was consulted and in process of arranging for home hospice to follow up upon discharge on Tuesday. However, patient noted to pass this morning with at bedside. Discharge Medications Scheduled Amiodarone HCl (Amiodarone HCl) 200 Mg Tablet, 200 MG PO DAILY, (Reported) Aspirin (Aspirin EC) 81 Mg Tablet.dr, 81 MG PO DAILY, (Reported) Atorvastatin Calcium (Atorvastatin Calcium) 20 Mg Tablet, 20 MG PO DAILY, (Reported) Ferrous Gluconate (Ferrous Gluconate) 324 Mg Tablet, 324 MG PO BID, (Reported) Levothyroxine Sodium (Levoxyl) 125 Mcg Tablet, 125 MCG PO DAILY, (Reported) Lisinopril (Zestril) 5 Mg Tab, 5 MG PO DAILY, (Reported) Metformin HCl (Metformin HCl) 1,000 Mg Tablet, 1,000 MG PO BID, (Reported) Metoprolol Tartrate (Metoprolol Tartrate) 25 Mg Tablet, 12.5 MG PO BID, (Reported) Omeprazole (Omeprazole) 20 Mg Cap, 20 MG PO DAILY, (Reported) Sertraline Hcl (Sertraline HCl) 50 Mg Tablet, 50 MG PO DAILY, (Reported) Scheduled PRN Hydroxyzine HCl (Hydroxyzine HCl) 25 Mg Tablet, 25 MG PO Q6HP PRN for ANXIETY Nitroglycerin (Nitroglycerin) 0.4 Mg Tab.subl, 0.4 MG SL NITRO PRN for CHEST PAIN, (Reported) [Morphine Sulfate Oral Conc.] 10 MG/0.5 ML CONC, 2 MG SL Q2HP PRN for SEVERE PAIN (PS 8-10) Allergies Coded Allergies: No Known Allergies (Unverified , 08/09/19) AMELIA GREY MD Aug 19, 2019 14:49
== END 2019-08-19 04:45 | disposition expired | DRG 193 ==
LOC: M ED 06:28 → M ED INP 09:54 → M PCU 11:14 → M MS5PR 08-16 11:55
PROVIDERS: ADMIT Internal Medicine; ATTEND Student in an Organized Health Care Education/Training Program
DX: J18.9 Pneumonia, unspecified organism (principal); I50.33 Acute on chronic diastolic (congestive) heart failure; C78.01 Secondary malignant neoplasm of right lung; J93.83 Other pneumothorax; E87.2 Acidosis; E03.9 Hypothyroidism, unspecified; I11.0 Hypertensive heart disease with heart failure; I25.10 Atherosclerotic heart disease of native coronary artery without angina pectoris; I48.91 Unspecified atrial fibrillation; Z51.5 Encounter for palliative care; Z66 Do not resuscitate; K21.9 Gastro-esophageal reflux disease without esophagitis; E87.6 Hypokalemia; C55 Malignant neoplasm of uterus, part unspecified; E11.9 Type 2 diabetes mellitus without complications; I25.2 Old myocardial infarction; Z90.49 Acquired absence of other specified parts of digestive tract; Z90.710 Acquired absence of both cervix and uterus; Z79.82 Long term (current) use of aspirin; Z79.84 Long term (current) use of oral hypoglycemic drugs; Z79.899 Other long term (current) drug therapy